=== PATIENT | female | born 1940 ===

== ENCOUNTER 2017-04-08 11:24 | Inpatient (IN) | payer MEDICARE, OTHER ==
[2017-04-08 11:24] VITALS: BMI 25.4
--- NOTE | 2017-04-08 11:58 | C.PDOC ---
History Of Present Illness 76-YEAR-OLD FEMALE, PRESENTS TO THE EMERGENCY DEPARTMENT WITH COMPLAINTS OF NEW ONSET GI BLEED X 3 DAYS. +BLOOD W BM EACH TIME, WORSENING INTENSITY. +LLQ PAIN. LOCALIZED. NO NV, FEVER. DENIES PRIOR HO SAME. NO RECTAL PAIN. EXAM MILD DIST NONTOXIC HEENT NO PALLOR ABD +LLQ TEND SOFT NO RG REMAINDER NEG Time Seen by Provider: 04/08/17 11:52 Chief Complaint (Nursing): GI Problem History Per: Patient History/Exam Limitations: no limitations Current Symptoms Are (Timing): Still Present Severity: Moderate Past Medical History Reviewed: Historical Data, Nursing Documentation, Vital Signs Vital Signs: Last Vital Signs Temp 98.4 F 04/08/17 11:29 Pulse 76 04/08/17 13:20 Resp 16 04/08/17 13:20 BP 153/79 H 04/08/17 13:20 Pulse Ox 96 04/08/17 14:01 - Medical History PMH: Back Problems (Herniated Discs), Colonic Polyps, HTN, Hypercholesterolemia , Osteoporosis, Peripheral Edema Denies: Chronic Kidney Disease - [facility] Procedures CLOSED ENDOSCOPIC BIOPSY OF LARGE INTESTINE (01/25/15) LOCAL EXCIS BREAST LES (05/03/01) Family History: States: No Known Family Hx - Social History Hx Tobacco Use: No Hx Alcohol Use: No Hx Substance Use: No - Immunization History Hx Tetanus Toxoid Vaccination: Yes Hx Influenza Vaccination: No Hx Pneumococcal Vaccination: No Review Of Systems Except As Marked, All Systems Reviewed And Found Negative. Constitutional: Negative for: Fever Cardiovascular: Negative for: Chest Pain Respiratory: Negative for: Shortness of Breath Gastrointestinal: Positive for: Abdominal Pain (LLQ), Hematochezia Genitourinary: Negative for: Vaginal Discharge, Vaginal Bleeding Musculoskeletal: Negative for: Back Pain Neurological: Negative for: Weakness, Numbness Physical Exam - Physical Exam Appears: Non-toxic, No Acute Distress Skin: Warm, Dry, No Rash Head: Atraumatic, Normacephalic Eye(s): bilateral: Normal Inspection, Other (no pallor) Nose: Normal Oral Mucosa: Moist Neck: Normal ROM Cardiovascular: Rhythm Regular, No Murmur Respiratory: Normal Breath Sounds, No Accessory Muscle Use Gastrointestinal/Abdominal: Soft, Tenderness (LLQ), No Guarding, No Rebound Extremity: Normal ROM Neurological/Psych: Oriented x3, Normal Speech ED Course And Treatment - Laboratory Results Result Diagrams: 04/08/17 12:18 04/08/17 12:18 ECG: Interpreted By Me ECG Rhythm: Sinus Rhythm ECG Interpretation: Normal Rate From EC O2 Sat by Pulse Oximetry: 96 Pulse Ox Interpretation: Normal Progress - Data Reviewed Data Reviewed: Lab, Diagnostic imaging, EKG, Old records ED OBSERVATION Date of observation admission: 04/08/17 Time of observation admission: 11:45 - Observation admission statement Patient is being placed in observation because:: GI BLEED, ABD PAIN - Goals of Observation Goals of observation are:: NO ACUTE ABD; NO SEVERE ANEMIA - Progress Note Progress Note: 04/08/17 13:57 NO RECUR RECTAL BLEED/BM SINCE PRIOR EVAL. TACHYCARDIA RESOLVED. 04/08/17 13:58 D/W DR HART C/F PMD WILL ADMIT Disposition Counseled Patient/Family Regarding: Studies Performed, Diagnosis - Disposition Disposition: HOSPITALIZED Disposition Time: 14:00 Condition: SERIOUS - POA Present On Arrival: None - Clinical Impression Clinical Impression: Gastrointestinal hemorrhage, Colitis, Abdominal pain - Scribe Statement The provider has reviewed the documentation as recorded by the Scribe (Tree Dillon) All medical record entries made by the Scribe were at my direction and personally dictated by me. I have reviewed the chart and agree that the record accurately reflects my personal performance of the history, physical exam, medical decision making, and the department course for this patient. I have also personally directed, reviewed, and agree with the discharge instructions and disposition. Decision To Admit - Pt Status Changed To: Hospital Disposition Of: Inpatient - Admit Certification Admit to Inpatient:: After my assessment, the patient will require hospitalization for at least two midnights. This is because of the severity of symptoms shown, intensity of services needed, and/or the medical risk in this patient being treated as an outpatient. - InPatient: Physician Admission Certification: I certify that this patient requires 2 or more midnights of care for the following reason:: SEE NOTE - . Bed Request Type: Telemetry Admitting Physician: Imelda Hart Patient Diagnosis: Gastrointestinal hemorrhage, Colitis, Abdominal pain
[2017-04-08] MEDS ORDERED: Sodium Chloride 0.9% 1,000 ML IV ONE (11:59)
[2017-04-08] MEDS ORDERED: Sodium Chloride 0.9% 500 ML IV ONE (11:59)
[2017-04-08] MEDS ORDERED: Iodixanol 320 MG/ML 100 ML BOTTLE IV ONE (12:13)
[2017-04-08 12:22] LABS: BASO % 0.2 % (0.0-2.0); HEMATOCRIT 47.1 % (34.0-47.0); LYMPH # 1.7 K/uL (1.0-4.3); LYMPH % 11.3 % (20.0-40.0); MEAN CORPUSCULAR HEMOGLOBIN 31.4 pg (27.0-31.0); MEAN CORPUSCULAR HGB CONC 34.1 g/dL (33.0-37.0); MONO # 0.8 K/uL (0.0-0.8); MONO % 5.1 % (0.0-10.0); RED CELL DISTRIBUTION WIDTH 13.1 % (11.5-14.5)
[2017-04-08 12:25] LABS: WHITE BLOOD COUNT 14.7 K/uL (4.8-10.8)
[2017-04-08 12:34] LABS: ALB/GLOB RATIO 1.1 (1.0-2.1); ALKALINE PHOSPHATASE 152 U/L (38-126); ALT/SGPT 33 U/L (9-52); AST/SGOT 31 U/L (14-36); BILIRUBIN,TOTAL 1.1 mg/dL (0.2-1.3); BLOOD UREA NITROGEN 12 mg/dL (7-17); CALCIUM 9.5 mg/dl (8.6-10.4); CARBON DIOXIDE 27 mmol/L (22-30); CHLORIDE 99 mmol/L (98-107); GFR AFRICAN-AMERICAN > 60; GLUCOSE,RANDOM 137 mg/dL (65-105); POTASSIUM 3.5 mmol/L (3.6-5.2); SODIUM 141 mmol/L (132-148); TOTAL PROTEIN 7.9 g/dL (6.3-8.3)
[2017-04-08 12:46] LABS: RBC URINE 8 /hpf (0-3); URINE BACTERIA RARE (<OCC); URINE BILIRUBIN NEGATIVE (NEGATIVE); URINE BLOOD 1+ (NEGATIVE); URINE COLOR Yellow (YELLOW); URINE GLUCOSE (UA) 1+ mg/dL (Normal); URINE KETONE NEGATIVE (NEGATIVE); URINE LEUKOCYTE ESTERASE NEG Leu/uL (Negative); URINE PROTEIN 2+ mg/dL (NEGATIVE); URINE UROBILINOGEN NORMAL mg/dL (0.2-1.0); WBC URINE 3 /hpf (0-5)
--- NOTE | 2017-04-08 13:51 | CT ---
PROCEDURE: CT Abdomen and Pelvis with contrast HISTORY: GI Bleeding LLQ PAIN COMPARISON: Abdomen and pelvis CT with contrast 04/26/2016. TECHNIQUE: Contrast dose: Visipaque 320, 100 cc. Radiation dose: Total exam DLP = 515 mGy-cm. This CT exam was performed using one or more of the following dose reduction techniques: Automated exposure control, adjustment of the mA and/or kV according to patient size, and/or use of iterative reconstruction technique. FINDINGS: LOWER THORAX: Small hiatal hernia is identified. No pleural or pericardial effusion. LIVER: Unremarkable. No gross lesion or ductal dilatation. GALLBLADDER AND BILE DUCTS: Unremarkable. PANCREAS: Unremarkable. No gross lesion or ductal dilatation. SPLEEN: Unremarkable. ADRENALS: Unremarkable. No mass. KIDNEYS AND URETERS: Unremarkable. No hydronephrosis. No solid mass. VASCULATURE: And ectatic non aneurysmal aorta is identified patent. BOWEL: There is marked thickening of the descending colon including the mid to distal splenic flexure including local pericolic reaction. Infrequent diverticular seen along this length of colon and while diverticulitis is a possibility, other infectious or inflammatory causes are not excluded. Not favor ischemia and neoplasm however follow-up lower endoscopy is advised for the latter nevertheless following current pending therapy no bowel obstruction is appreciated there is no abscess related to the aforementioned reactive bowel changes. Opacified small bowel loops appear unremarkable. APPENDIX: Small hiatal hernia identified. Normal appendix. PERITONEUM: Unremarkable. No free fluid. No free air. LYMPH NODES: Unremarkable. No enlarged lymph nodes. BLADDER: Urinary bladder appears decompressed with somewhat thickened wall which is poorly evaluated. Further clinical correlation is advised. REPRODUCTIVE: Unremarkable. BONES: No acute fracture. OTHER FINDINGS: None. IMPRESSION: 1. Findings suggestive of segmental colitis affecting the descending colon and mid to distal splenic flexure. Diverticulitis is a limited possibility with the other infectious or inflammatory causes possible. No abscess or free air. Trace fluid is seen the pelvis. Including the diverted diagnosis but not favored are ischemia and neoplasm. Please see discussion above. 2. Urinary bladder is not adequately distended with mural thickening not excluded. Clinically correlate.
--- NOTE | 2017-04-08 15:11 | CP.PCM.HP ---
Addendum entered and electronically signed by Roopa James 04/08/17 17:46 : Discussed with patient in case of an emergency and we need to contact someone to make medical decisions if she cannot. The patient stated if in an emergency she cannot make decisions we can contact her son Tommie Baca and he can make the decisions in her place. Original Note: <Roopa James. - Last Filed: 04/08/17 17:31> History of Present Illness - History of Present Illness History of Present Illness: CC: "Pain" HPI: 76 year old female with past medical history of hypertension, hyperlipidemia, and arthritis who presents to the emergency room for abdominal pain. Patient states on Sunday she had some constipation that led her to the bathroom where she saw blood in the toilet. Per patient yesterday she had two bowel movements that were also with blood but the bowel movement were normal in shape and she denied constipation. Patient states today when she had a bowel movement she had a severe abdominal pain and the toilet was covered in blood and that's when she decided to come to the emergency department. Patient states her pain is currently a 6/10. Patient stated she had chills overnight and she vomited once yesterday after eating a piece of bread. Patient states she has not had much of an appetite recently and she has lost 20lbs in the past month or so. Patient states blood in her stool has never happened before. Patient states she did get her colonoscopy about 2 years ago and it was normal but she believes she may need another this year. Patient denies fever, chest pain, shortness of breath, palpitations, trauma, or recent travel. PMD: Dr. Choe GI: Dr. Hdez Past Medical History: Hypertension, hyperlipidemia, arthritis Past Surgical History: Colonoscopy, , shoulder surgery, herniated disk surgery Family History: Mom from lung cancer at the age of 75 Medications: patient does not recall- follow up with [facility] in [place] Allergies: Denies Social History: Denies smoking, alcohol, or illicit drug use. Patient lives in apartment alone with her cat. Patient has a son near by - Tommie Baca . Present on Admission - Present on Admission Any Indicators Present on Admission: No Review of Systems - Constitutional Constitutional: Chills, Weight Loss (20lb weight loss in the past 2 months). absent: Fever, Headache, Increased Appetite (decreased appetite ) - EENT Eyes: absent: Blurred Vision, Change in Vision Nose/Mouth/Throat: absent: Nasal Congestion, Sore Throat - Cardiovascular Cardiovascular: absent: Chest Pain, Dyspnea, Palpitations - Respiratory Respiratory: absent: Cough, Dyspnea, Hemoptysis - Gastrointestinal Gastrointestinal: Abdominal Pain, Constipation, Hematochezia, Vomiting (vomited once yesterday). absent: Diarrhea, Nausea - Genitourinary Genitourinary: absent: Dysuria, Hematuria - Musculoskeletal Musculoskeletal: absent: Muscle Weakness - Neurological Neurological: absent: Dizziness, Headaches - Psychiatric Psychiatric: Change in Appetite - Endocrine Endocrine: absent: Palpitations Past Patient History - Past Medical History & Family History Past Medical History?: Yes - Past Social History Smoking Status: Never Smoked - CARDIAC Hx Hypercholesterolemia: Yes Hx Hypertension: Yes Hx Peripheral Edema: Yes - PULMONARY Hx Respiratory Disorders: No - NEUROLOGICAL Hx Neurological Disorder: Yes Hx Dizziness: Yes - HEENT Hx HEENT Problems: Yes (WAX BUILD UP RIGHT EAR) - RENAL Hx Chronic Kidney Disease: No - ENDOCRINE/METABOLIC Hx Endocrine Disorders: No - HEMATOLOGICAL/ONCOLOGICAL Hx Blood Disorders: No - INTEGUMENTARY Hx Dermatological Problems: No - MUSCULOSKELETAL/RHEUMATOLOGICAL Hx Osteoporosis: Yes - GASTROINTESTINAL Hx Gastrointestinal Disorders: Yes - GENITOURINARY/GYNECOLOGICAL Hx Genitourinary Disorders: No - PSYCHIATRIC Hx Substance Use: No - SURGICAL HISTORY Hx Surgeries: Yes Hx Breast Biopsy: Yes (RIGHT) Hx Section: Yes (X2) Hx Orthopedic Surgery: Yes (LEFT CARPAL) Hx Tubal Ligation: Yes - ANESTHESIA Hx Anesthesia: Yes Hx Anesthesia Reactions: No Hx Malignant Hyperthermia: No Meds Allergies/Adverse Reactions: Allergies Allergy/AdvReac Type Severity Reaction Status Date / Time No Known Allergies Allergy Verified 04/08/17 11:31 Physical Exam - Constitutional Appears: No Acute Distress - Head Exam Head Exam: ATRAUMATIC, NORMAL INSPECTION, NORMOCEPHALIC - Eye Exam Eye Exam: EOMI, Normal appearance, PERRL. absent: Conjunctival injection, Nystagmus, Periorbital swelling, Scleral icterus Pupil Exam: NORMAL ACCOMODATION, PERRL - ENT Exam ENT Exam: Mucous Membranes Dry. absent: Normal Oropharynx (tongue looked slightly light black tinged ) - Respiratory Exam Respiratory Exam: Clear to Auscultation Bilateral, NORMAL BREATHING PATTERN. absent: Rales, Rhonchi, Wheezes, Stridor - Cardiovascular Exam Cardiovascular Exam: Tachycardia, REGULAR RHYTHM, +S1, +S2 - GI/Abdominal Exam GI & Abdominal Exam: Normal Bowel Sounds, Soft, Tenderness (left upper quadrant pain) - Rectal Exam Rectal Exam: Bloody Stool. absent: Hemorrhoids Additional comments: No masses felt, no tenderness to exam - Extremities Exam Extremities exam: Positive for: normal inspection. Negative for: calf tenderness, pedal edema, tenderness - Neurological Exam Neurological exam: Alert, CN II-XII Intact, Oriented x3 - Psychiatric Exam Psychiatric exam: Normal Affect - Skin Skin Exam: Normal Color, Warm Results - Vital Signs Recent Vital Signs: Last Vital Signs Temp 98.2 F 04/08/17 15:01 Pulse 92 H 04/08/17 15:01 Resp 16 04/08/17 15:01 BP 138/80 04/08/17 15:01 Pulse Ox 100 04/08/17 15:01 - Labs Result Diagrams: 04/08/17 12:18 04/08/17 12:18 Assessment & Plan - Assessment and Plan (Free Text) Plan: 1.) Lower GI Bleed - Admitted to telemetry floor - NPO changed to Clear Liquid Diet (okay to start per surgery and GI) - IV fluis NS @100cc/hr - GI Consult: Dr. Hdez --> help appreciated - f/u CBC with diff - Monitor H/H - Ordered Type/Cross 1 unit - PRN blood transfusion - Blood transfusion consent placed in chart - Protonix 40mg IV Q12h - Refrain from: NSAIDs, anticoagulation 2.) Abdominal Pain - f/u lipase, amylase - NPO changed to Clear Liquid Diet (okay to start per surgery and GI) - CT scan of Abdomen (IV contrast): Findings suggestive of segmental colitis affecting the descending colon and mid to distal splenic flexure. Diverticulitis is limited possibility with the other infectious or inflammatory causes possible. No abscess or free air. Trace fluid is seen the pelvis. Including the diverted diagnosis but not favored are ischemia and neoplasm. - IV fluids NS @100 cc/hr - Surgery Consult: Dr. Marion --> help appreciated - f/u occult blood, stool ova/parasite, stool leukocytes, stool culture, C. Diff toxin - Ciprofloxacin 400mg IV Q12H started 04/08/17 - Flagyl 500mg IV Q8H started 04/08/17 3.) Hypokalemia - Replete - f/u BMP and Mg - monitor to replete 4.) History of Hypertension - hold antihypertensives - monitor vital signs 5.) History of Hyperlipidemia - Hold statin - f/u Lipid panel 6.) History of Internal Hemorrhoids - Endoscopy Report 01/25/15: Nonspecific colitis involving the ascending colon; Internal hemorrhoids 7.) Tachycardia - f/u repeat EKG 04/09/2017 - f/u ROMIx3 8.) Leukocytosis - f/u blood cultures x2 - f/u UA, Urine Culture (prior to starting antibiotics) 9.) Prophylaxis - Contraindication for VTE - due to lower GI bleed - SCDs <Imelda Kearney V - Last Filed: 04/08/17 18:04> Results - Vital Signs Recent Vital Signs: Last Vital Signs Temp 98.8 F 04/08/17 15:16 Pulse 68 04/08/17 15:16 Resp 20 04/08/17 15:16 BP 150/78 04/08/17 15:16 Pulse Ox 99 04/08/17 15:16 - Labs Result Diagrams: 04/08/17 12:18 04/08/17 12:18 Labs: Laboratory Results - last 24 hr 04/08/17 04/08/17 04/08/17 14:59 16:12 16:13 POC Glucose (mg/dL) 95 Total Creatine Kinase 42 CK-MB (Mass) 1.57 Troponin I, Quant < 0.0120 Amylase 80 Lipase 51 Stool Occult Blood 04/08/17 17:24 POC Glucose (mg/dL) Total Creatine Kinase CK-MB (Mass) Troponin I, Quant Amylase Lipase Stool Occult Blood Positive H Attending/Attestation - Attestation I have personally seen and examined this patient.: Yes I have fully participated in the care of the patient.: Yes I have reviewed all pertinent clinical information: Yes Notes (Text): Patient seen, examined and case discussed with day-time resident. Patient seen in Bed [facility] Room on 04/08/17 at approximately at 3PM. No family present. Agree with history and physical obtained by resident. Resident perform rectal exam when she was transferred to the floor and visualized bowel movement. Patient's BM is loose and covered in blood, does not appear black. Patient has been off NSAID for one month (used to take Naproxen). Came in after three hx of rectal bleeding with stool, and day of admission having abdominal pain. Patient refused Morphine in the ED. Will replete electrolytes, IV fluids, type and cross 1 unit PRBC blood transfusion prn, consult patient's GI and general surgery. Repeat blood work in the evening and replete electrolytes if needed. Discussed admitting orders with day time resident. Assessment/Plan 1.) Lower GI Bleed - Admitted to telemetry floor - NPO changed to Clear Liquid Diet (Per surgery and GI, allowed to) - IV fluis NS @100cc/hr - GI Consult: Dr. Hdez --> help appreciated - f/u CBC with diff 6PM - Monitor H/H - Ordered Type/Cross 1 unit - PRN blood transfusion if needed - Blood transfusion consent placed in chart - Protonix 40mg IV Q12h - Refrain from: NSAIDs, chemical anticoagulation 2.) Abdominal Pain - Surgery Consult: Dr. Marion --> help appreciated - GI consult: Dr. Hdez-->help appreciated - f/u lipase, amylase - NPO changed to Clear Liquid Diet (okay to start per surgery and GI) - CT scan of Abdomen (IV contrast): Findings suggestive of segmental colitis affecting the descending colon and mid to distal splenic flexure. Diverticulitis is limited possibility with the other infectious or inflammatory causes possible. No abscess or free air. Trace fluid is seen the pelvis. Including the diverted diagnosis but not favored are ischemia and neoplasm. - IV fluids NS @100 cc/hr - f/u occult blood, stool ova/parasite, stool leukocytes, stool culture, C. Diff toxin - IV Abx: Ciprofloxacin 400mg IV Q12H started 04/08/17 and Flagyl 500mg IV Q8H started 04/08/17 3.) Hypokalemia - Replete - f/u BMP and Mg in evening; discussed with nurse, Lex terry collected after initial K rider is finished infusing - monitor to replete 4.) History of Hypertension - hold antihypertensives given GI bleed - NS 100cc/hr - monitor vital signs 5.) History of Hyperlipidemia - Hold statin - f/u Lipid panel in AM 6.) History of Internal Hemorrhoids - Endoscopy Report 01/25/15: Nonspecific colitis involving the ascending colon; Internal hemorrhoids (available in the EMR; pathology available in EMR) - Per patient, she was due for colonoscopy with her GI around about this time 7.) Tachycardia - f/u repeat EKG 04/09/2017 - f/u ROMIx3, Q6 hours 8.) Leukocytosis - f/u blood cultures x2 - f/u UA, Urine Culture (prior to starting antibiotics) 9.) Prophylaxis - Contraindication for VTE - due to lower GI bleed - SCDs - Protonix 40mg IV [id number] Will endorse day-time team to follow-up with patient's pharmacy to get patient' s home medication list.
[2017-04-08 15:15] LABS: AMYLASE 80 U/L (30-110)
[2017-04-08 16:03] VITALS: RESP 20
[2017-04-08] MEDS: metroNIDAZOLE IV 500 mg/100 ml 500 MG/100 ML BAG IVPB SCH ×2 (16:06→22:02)
--- NOTE | 2017-04-08 16:07 | CP.PCM.CON ---
History of Present Illness - History of Present Illness History of Present Illness: Gen Sx: Dr Marion Pt is a 76F with PMH of HTN, HLD, and arthritis who presented for new onset lower GI bleeding. Pt reports on sunday she had a small amount of blood on tissue after wiping. Following that on sunday she had two bowel movements which were normal in shape but with bright red blood in the bowel so she presented to ED. Pt expresses her BM was accompanied by intense left sided abdominal pain 6/10. Pt also reports a decrease in appetite and 20 lb weight loss over the past 2 months. Pt routinely sees Dr Hdez w/ last colonoscopy 2 years ago which showed internal hemorrhoids CT concerning for segmental colitis, infectious vs ischemic PMH: as above PSH: , shoulder, spine NKDA Review of Systems - Review of Systems All systems: reviewed and no additional remarkable complaints except (as per hpi ) Past Patient History - Past Medical History & Family History Past Medical History?: Yes - Past Social History Smoking Status: Never Smoked - CARDIAC Hx Hypercholesterolemia: Yes Hx Hypertension: Yes Hx Peripheral Edema: Yes - PULMONARY Hx Respiratory Disorders: No - NEUROLOGICAL Hx Neurological Disorder: Yes Hx Dizziness: Yes - HEENT Hx HEENT Problems: Yes (WAX BUILD UP RIGHT EAR) - RENAL Hx Chronic Kidney Disease: No - ENDOCRINE/METABOLIC Hx Endocrine Disorders: No - HEMATOLOGICAL/ONCOLOGICAL Hx Blood Disorders: No - INTEGUMENTARY Hx Dermatological Problems: No - MUSCULOSKELETAL/RHEUMATOLOGICAL Hx Osteoporosis: Yes - GASTROINTESTINAL Hx Gastrointestinal Disorders: Yes - GENITOURINARY/GYNECOLOGICAL Hx Genitourinary Disorders: No - PSYCHIATRIC Hx Substance Use: No - SURGICAL HISTORY Hx Surgeries: Yes Hx Breast Biopsy: Yes (RIGHT) Hx Section: Yes (X2) Hx Orthopedic Surgery: Yes (LEFT CARPAL) Hx Tubal Ligation: Yes - ANESTHESIA Hx Anesthesia: Yes Hx Anesthesia Reactions: No Hx Malignant Hyperthermia: No Meds Allergies/Adverse Reactions: Allergies Allergy/AdvReac Type Severity Reaction Status Date / Time No Known Allergies Allergy Verified 04/08/17 11:31 - Medications Medications: Current Medications Sodium Chloride (Sodium Chloride 0.9%) 1,000 mls @ 100 mls/hr IV .Q10H ONE Stop: 04/08/17 21:58 Last Admin: 04/08/17 12:55 Dose: 100 mls/hr Potassium Chloride (Potassium Chloride 20 Meq/100 Ml) 20 meq in 100 mls @ 50 mls/hr IVPB ONCE ONE Stop: 04/08/17 16:59 Last Admin: 04/08/17 14:59 Dose: 50 mls/hr Ciprofloxacin (Cipro 400mg/200ml Dsw) 400 mg in 200 mls @ 133 mls/hr IVPB Q12H NAIL Metronidazole (Flagyl) 500 mg in 100 mls @ 100 mls/hr IVPB Q8H ANIL Last Admin: 04/08/17 16:06 Dose: Not Given Pantoprazole Sodium (Protonix Inj) 40 mg IVP Q12H ANIL Physical Exam - Constitutional Appears: Non-toxic, No Acute Distress - Head Exam Head Exam: NORMOCEPHALIC - ENT Exam ENT Exam: Mucous Membranes Moist - Respiratory Exam Respiratory Exam: absent: Accessory Muscle Use, Respiratory Distress - Cardiovascular Exam Cardiovascular Exam: REGULAR RHYTHM - GI/Abdominal Exam GI & Abdominal Exam: Soft, Tenderness (LLQ and LUQ). absent: Distended, Firm, Guarding, Rigid - Rectal Exam Rectal Exam: Bloody Stool - Extremities Exam Extremities exam: Negative for: calf tenderness, pedal edema - Neurological Exam Neurological exam: Alert, Oriented x3 - Psychiatric Exam Psychiatric exam: Normal Affect, Normal Mood - Skin Skin Exam: Normal Color, Warm Results - Vital Signs Recent Vital Signs: Last Vital Signs Temp 98.8 F 04/08/17 15:16 Pulse 68 04/08/17 15:16 Resp 20 04/08/17 15:16 BP 150/78 04/08/17 15:16 Pulse Ox 99 04/08/17 15:16 - Labs Result Diagrams: 04/08/17 19:38 04/08/17 12:18 Labs: Laboratory Results - last 24 hr 04/08/17 14:59 Amylase 80 Lipase 51 Assessment & Plan - Assessment and Plan (Free Text) Assessment: 76F with bright red blood per rectum; hemorrhoids vs colitis Plan: IV fluids Ok to feed CLD but will defer decision to GI time pt may need repeat colonoscopy IV abx no immediate surgical intent but will continue to follow trend H/H d/w Dr Doni Bailey, PGY3
[2017-04-08] MEDS ORDERED: DiphenhydrAMINE 50 mg/ml Inj IVP ONE (17:15)
[2017-04-08] MEDS: Ciprofloxacin 400mg/200ml D5W 400 MG/200 ML BAG IVPB SCH (18:26)
[2017-04-08] MEDS: Sodium Chloride 0.9% 1,000 ML IV SCH (18:54)
[2017-04-08 19:43] LABS: BASO % 0.3 % (0.0-2.0); EOS % 0.2 % (0.0-4.0); HEMATOCRIT 40.7 % (34.0-47.0); LYMPH # 2.7 K/uL (1.0-4.3); LYMPH % 18.6 % (20.0-40.0); MEAN CELL VOLUME 92.4 fL (81.0-99.0); MEAN CORPUSCULAR HEMOGLOBIN 31.4 pg (27.0-31.0); MEAN PLATELET VOLUME 7.2 fL (7.2-11.7); MONO # 0.8 K/uL (0.0-0.8); MONO % 5.8 % (0.0-10.0); RED CELL DISTRIBUTION WIDTH 13.4 % (11.5-14.5); WHITE BLOOD COUNT 14.6 K/uL (4.8-10.8)
[2017-04-08 22:49] LABS: CHLORIDE 106 mmol/L (98-107); POTASSIUM 3.3 mmol/L (3.6-5.2); SODIUM 140 mmol/L (132-148)
[2017-04-08 22:52] LABS: AMYLASE 82 U/L (30-110); BLOOD UREA NITROGEN 7 mg/dL (7-17); CARBON DIOXIDE 24 mmol/L (22-30); GFR AFRICAN-AMERICAN > 60
[2017-04-08 22:53] LABS: CALCIUM 8.2 mg/dl (8.6-10.4); GLUCOSE,RANDOM 135 mg/dL (65-105); MAGNESIUM 1.6 mg/dL (1.6-2.3)
[2017-04-08] MEDS ORDERED: Magnesium Sulfate 1 gm in D5W 1 GM/100 ML BAG IVPB ONE (23:09)
[2017-04-08] MEDS: Potassium Chloride 20 mEq ER Tab PO SCH (23:42)
[2017-04-09] MEDS: Sodium Chloride 0.9% 1,000 ML IV SCH ×3 (05:00→16:30)
[2017-04-09] MEDS: metroNIDAZOLE IV 500 mg/100 ml 500 MG/100 ML BAG IVPB SCH ×3 (05:10→21:06)
[2017-04-09] MEDS: Ciprofloxacin 400mg/200ml D5W 400 MG/200 ML BAG IVPB SCH ×2 (06:18→17:16)
--- NOTE | 2017-04-09 06:45 | CP.PCM.PN ---
Subjective - Date & Time of Evaluation Date of Evaluation: 04/09/17 Time of Evaluation: 06:43 - Subjective Subjective: Gen Sx: Dr Marion Pt S&E. Reports another bloody BM overnight. Still with pain to left side. Tolerating CLD. Denies n/v, f/c. Awaiting GI evaluation Objective - Vital Signs/Intake and Output Vital Signs (last 24 hours): Temp Pulse Resp BP Pulse Ox 98.5 F 65 20 132/71 97 04/08/17 23:30 04/09/17 00:16 04/08/17 23:30 04/08/17 23:30 04/08/17 23:30 Intake and Output: 04/08/17 04/09/17 18:59 06:59 Intake Total 1300 Balance 1300 - Medications Medications: Current Medications Ciprofloxacin (Cipro 400mg/200ml Dsw) 400 mg in 200 mls @ 133 mls/hr IVPB Q12H [facility] Last Admin: 04/09/17 06:18 Dose: 133 mls/hr Metronidazole (Flagyl) 500 mg in 100 mls @ 100 mls/hr IVPB Q8H [facility] Last Admin: 04/09/17 05:10 Dose: 100 mls/hr Sodium Chloride (Sodium Chloride 0.9%) 1,000 mls @ 100 mls/hr IV .Q10H [facility] Last Admin: 04/09/17 05:00 Dose: Not Given Pantoprazole Sodium (Protonix Inj) 40 mg IVP Q12H [facility] Last Admin: 04/09/17 05:10 Dose: 40 mg Potassium Chloride (K-Dur 20 Meq Er Tab) 40 meq PO DAILY [facility] Last Admin: 04/08/17 23:42 Dose: 40 meq Rosuvastatin Calcium (Crestor) 5 mg PO HS [facility] Last Admin: 04/08/17 22:02 Dose: 5 mg - Labs Labs: 04/08/17 19:38 04/08/17 22:38 PT 11.5 SECONDS (9.7-12.2) 04/08/17 12:18 INR 1.0 04/08/17 12:18 APTT 31 SECONDS (21-34) 04/08/17 12:18 - Constitutional Appears: Non-toxic, No Acute Distress - ENT Exam ENT Exam: Mucous Membranes Moist - Respiratory Exam Respiratory Exam: absent: Accessory Muscle Use, Respiratory Distress - GI/Abdominal Exam GI & Abdominal Exam: Soft, Tenderness (LUQ + LLQ). absent: Distended, Hernia, Mass - Neurological Exam Neurological Exam: Alert, Awake, Oriented x3 - Psychiatric Exam Psychiatric exam: Normal Affect - Skin Skin Exam: Normal Color, Warm Assessment and Plan - Assessment and Plan (Free Text) Assessment: 76F with brbpr Plan: awaiting GI eval - Dr Hdez pt will likely need colonoscopy cont CLD, IV abx monitor H/H closely will cont to follow d/w Dr Doni Bailey, PGY3
[2017-04-09 07:28] LABS: BASO % 0.2 % (0.0-2.0); EOS % 0.2 % (0.0-4.0); HEMATOCRIT 41.4 % (34.0-47.0); LYMPH # 2.5 K/uL (1.0-4.3); LYMPH % 17.6 % (20.0-40.0); MEAN CELL VOLUME 92.4 fL (81.0-99.0); MEAN CORPUSCULAR HEMOGLOBIN 30.8 pg (27.0-31.0); MEAN CORPUSCULAR HGB CONC 33.4 g/dL (33.0-37.0); MEAN PLATELET VOLUME 7.2 fL (7.2-11.7); RED CELL DISTRIBUTION WIDTH 13.4 % (11.5-14.5); WHITE BLOOD COUNT 13.9 K/uL (4.8-10.8)
[2017-04-09 07:50] LABS: ALKALINE PHOSPHATASE 110 U/L (38-126); ALT/SGPT 33 U/L (9-52); AST/SGOT 22 U/L (14-36); BILIRUBIN,TOTAL 1.2 mg/dL (0.2-1.3); BLOOD UREA NITROGEN 6 mg/dL (7-17); CALCIUM 8.5 mg/dl (8.6-10.4); CARBON DIOXIDE 27 mmol/L (22-30); CHLORIDE 104 mmol/L (98-107); CHOLESTEROL 191 mg/dL (0-199); GFR AFRICAN-AMERICAN > 60; GLUCOSE,RANDOM 118 mg/dL (65-105); SODIUM 139 mmol/L (132-148); TOTAL PROTEIN 6.4 g/dL (6.3-8.3)
--- NOTE | 2017-04-09 08:36 | CP.PCM.CON ---
History of Present Illness - History of Present Illness History of Present Illness: Covering Dr Hdez CC: lower GI Bleed HPI: GI consult requested for 76 year old woman admitted with sveral episodes of BRBPR mixed wit soft stools, associated with cramping LLQ pain. Hgb stable. Denies fevers but chills present. Patient denies recent travel or antibiotics. She has no prior history of GI bleeding. She takes numerous anelgesics for arthritis, but denies anticoagulant use. Last colonoscopy was in 2014, and showed nonspecific colitis in ascending colon. Current DT scan shwos colitis changes present in descending colon. Review of Systems - Constitutional Constitutional: Chills. absent: Fever, Weakness - EENT Eyes: absent: Change in Vision Nose/Mouth/Throat: absent: Epistaxis, Dysphagia - Cardiovascular Cardiovascular: absent: Chest Pain - Respiratory Respiratory: absent: Cough - Gastrointestinal Gastrointestinal: Cramping, Diarrhea, Hematochezia, Loose Stools. absent: Abdominal Pain, Hematemesis, Melena - Genitourinary Genitourinary: absent: Difficulty Urinating - Musculoskeletal Musculoskeletal: Arthralgias - Integumentary Integumentary: absent: Bleeding Lesions - Neurological Neurological: absent: Abnormal Gait, Abnormal Hearing - Psychiatric Psychiatric: absent: Behavioral Changes, Depression - Endocrine Endocrine: absent: Flushing - Hematologic/Lymphatic Hematologic: absent: Easy Bruising Past Patient History - Past Medical History & Family History Past Medical History?: Yes - Past Social History Smoking Status: Never Smoked Alcohol: None - CARDIAC Hx Hypercholesterolemia: Yes Hx Hypertension: Yes Hx Peripheral Edema: Yes - PULMONARY Hx Respiratory Disorders: No - NEUROLOGICAL Hx Neurological Disorder: Yes Hx Dizziness: Yes - HEENT Hx HEENT Problems: Yes (WAX BUILD UP RIGHT EAR) - RENAL Hx Chronic Kidney Disease: No - ENDOCRINE/METABOLIC Hx Endocrine Disorders: No - HEMATOLOGICAL/ONCOLOGICAL Hx Blood Disorders: No - INTEGUMENTARY Hx Dermatological Problems: No - MUSCULOSKELETAL/RHEUMATOLOGICAL Hx Osteoporosis: Yes - GASTROINTESTINAL Hx Gastrointestinal Disorders: Yes - GENITOURINARY/GYNECOLOGICAL Hx Genitourinary Disorders: No - PSYCHIATRIC Hx Substance Use: No - SURGICAL HISTORY Hx Surgeries: Yes Hx Breast Biopsy: Yes (RIGHT) Hx Section: Yes (X2) Hx Orthopedic Surgery: Yes (LEFT CARPAL) Hx Tubal Ligation: Yes - ANESTHESIA Hx Anesthesia: Yes Hx Anesthesia Reactions: No Hx Malignant Hyperthermia: No Meds Allergies/Adverse Reactions: Allergies Allergy/AdvReac Type Severity Reaction Status Date / Time No Known Allergies Allergy Verified 04/08/17 11:31 - Medications Medications: Current Medications Ciprofloxacin (Cipro 400mg/200ml Dsw) 400 mg in 200 mls @ 133 mls/hr IVPB Q12H [facility] Last Admin: 04/09/17 06:18 Dose: 133 mls/hr Metronidazole (Flagyl) 500 mg in 100 mls @ 100 mls/hr IVPB Q8H [facility] Last Admin: 04/09/17 05:10 Dose: 100 mls/hr Sodium Chloride (Sodium Chloride 0.9%) 1,000 mls @ 100 mls/hr IV .Q10H [facility] Last Admin: 04/09/17 05:00 Dose: Not Given Pantoprazole Sodium (Protonix Inj) 40 mg IVP Q12H [facility] Last Admin: 04/09/17 05:10 Dose: 40 mg Potassium Chloride (K-Dur 20 Meq Er Tab) 40 meq PO DAILY [facility] Last Admin: 04/08/17 23:42 Dose: 40 meq Rosuvastatin Calcium (Crestor) 5 mg PO HS [facility] Last Admin: 04/08/17 22:02 Dose: 5 mg Physical Exam - Constitutional Appears: Well, No Acute Distress - Head Exam Head Exam: ATRAUMATIC, NORMOCEPHALIC - Eye Exam Eye Exam: Normal appearance. absent: Scleral icterus - ENT Exam ENT Exam: Normal Exam - Neck Exam Neck exam: Positive for: Normal Inspection. Negative for: Thyromegaly - Respiratory Exam Respiratory Exam: Clear to Auscultation Bilateral. absent: Rales, Wheezes - Cardiovascular Exam Cardiovascular Exam: REGULAR RHYTHM - GI/Abdominal Exam GI & Abdominal Exam: Soft. absent: Distended, Guarding, Mass, Rebound, Tenderness - Rectal Exam Rectal Exam: Deferred - Extremities Exam Extremities exam: Positive for: normal inspection - Back Exam Back exam: NORMAL INSPECTION - Neurological Exam Neurological exam: Alert, Oriented x3 - Psychiatric Exam Psychiatric exam: Normal Affect, Normal Mood - Skin Skin Exam: Normal Color Results - Vital Signs Recent Vital Signs: Last Vital Signs Temp 98.5 F 04/08/17 23:30 Pulse 65 04/09/17 00:16 Resp 20 04/08/17 23:30 BP 132/71 04/08/17 23:30 Pulse Ox 97 04/08/17 23:30 - Labs Result Diagrams: 04/09/17 07:17 04/09/17 07:17 Labs: Laboratory Results - last 24 hr 04/08/17 04/08/17 04/08/17 14:59 16:12 16:13 WBC RBC Hgb Hct MCV MCH MCHC RDW Plt Count MPV Neut % (Auto) Lymph % (Auto) [place] % (Auto) Eos % (Auto) Baso % (Auto) Neut # Lymph # [place] # Eos # Baso # Sodium Potassium Chloride Carbon Dioxide Anion Gap BUN Creatinine Est GFR ( Amer) Est GFR (Non-Af Amer) POC Glucose (mg/dL) 95 Random Glucose Calcium Phosphorus Magnesium Total Bilirubin AST ALT Alkaline Phosphatase Total Creatine Kinase 42 CK-MB (Mass) 1.57 Troponin I, Quant < 0.0120 Total Protein Albumin Globulin Albumin/Globulin Ratio Triglycerides Cholesterol LDL Cholesterol Direct HDL Cholesterol Amylase 80 Lipase 51 Stool Occult Blood 04/08/17 04/08/17 04/08/17 17:24 19:38 21:42 WBC 14.6 H RBC 4.41 Hgb 13.9 D Hct 40.7 MCV 92.4 MCH 31.4 H MCHC 34.0 RDW 13.4 Plt Count 320 MPV 7.2 Neut % (Auto) 75.1 H Lymph % (Auto) 18.6 L [place] % (Auto) 5.8 Eos % (Auto) 0.2 Baso % (Auto) 0.3 Neut # 11.0 H Lymph # 2.7 [place] # 0.8 Eos # 0.0 Baso # 0.0 Sodium Potassium Chloride Carbon Dioxide Anion Gap BUN Creatinine Est GFR ( Amer) Est GFR (Non-Af Amer) POC Glucose (mg/dL) 70 Random Glucose Calcium Phosphorus Magnesium Total Bilirubin AST ALT Alkaline Phosphatase Total Creatine Kinase CK-MB (Mass) Troponin I, Quant Total Protein Albumin Globulin Albumin/Globulin Ratio Triglycerides Cholesterol LDL Cholesterol Direct HDL Cholesterol Amylase Lipase Stool Occult Blood Positive H 04/08/17 04/09/17 04/09/17 22:38 06:15 07:17 WBC RBC Hgb Hct MCV MCH MCHC RDW Plt Count MPV Neut % (Auto) Lymph % (Auto) [place] % (Auto) Eos % (Auto) Baso % (Auto) Neut # Lymph # [place] # Eos # Baso # Sodium 140 139 Potassium 3.3 L 4.0 Chloride 106 104 Carbon Dioxide 24 27 Anion Gap 13 12 BUN 7 6 L Creatinine 0.6 L 0.6 L Est GFR ( Amer) > 60 > 60 Est GFR (Non-Af Amer) > 60 > 60 POC Glucose (mg/dL) 107 Random Glucose 135 H 118 H Calcium 8.2 L 8.5 L Phosphorus 3.0 Magnesium 1.6 2.0 Total Bilirubin 1.2 AST 22 ALT 33 Alkaline Phosphatase 110 Total Creatine Kinase 41 CK-MB (Mass) 1.66 Troponin I, Quant < 0.0120 Total Protein 6.4 Albumin 3.1 L D Globulin 3.2 Albumin/Globulin Ratio 1.0 Triglycerides 69 D Cholesterol 191 LDL Cholesterol Direct 134 H HDL Cholesterol 55 Amylase 82 Lipase Stool Occult Blood 04/09/17 04/09/17 07:17 07:17 WBC 13.9 H RBC 4.48 Hgb 13.8 Hct 41.4 MCV 92.4 MCH 30.8 MCHC 33.4 RDW 13.4 Plt Count 322 MPV 7.2 Neut % (Auto) 75.0 Lymph % (Auto) 17.6 L [place] % (Auto) 7.0 Eos % (Auto) 0.2 Baso % (Auto) 0.2 Neut # 10.4 H Lymph # 2.5 [place] # 1.0 H Eos # 0.0 Baso # 0.0 Sodium Potassium Chloride Carbon Dioxide Anion Gap BUN Creatinine Est GFR ( Amer) Est GFR (Non-Af Amer) POC Glucose (mg/dL) Random Glucose Calcium Phosphorus Magnesium Total Bilirubin AST ALT Alkaline Phosphatase Total Creatine Kinase 29 L CK-MB (Mass) 1.07 Troponin I, Quant < 0.0120 Total Protein Albumin Globulin Albumin/Globulin Ratio Triglycerides Cholesterol LDL Cholesterol Direct HDL Cholesterol Amylase Lipase Stool Occult Blood Assessment & Plan (1) Colitis Assessment and Plan: Clinical picture most consistent with ischemic colitis. R/O infectious colitis. Hemodynamically stable and stable Hgb levels. Rec: Check stools for pathogens. Antibiotics probably not necessary but since they were already started I will not stop at this point. Diet may be advanced. Consider elective colonoscopy (last performed 2 years ago). Status: Acute
[2017-04-09] MEDS: Potassium Chloride 20 mEq ER Tab PO SCH (09:25)
--- NOTE | 2017-04-09 09:48 | CP.PCM.PN ---
<Flor Pettit - Last Filed: 04/09/17 14:40> Subjective - Date & Time of Evaluation Date of Evaluation: 04/09/17 Time of Evaluation: 07:00 - Subjective Subjective: PGY1- Medicine Note- Dr. Heller's Service Patient seen and examined at bedside and in no acute distress. Patient says she is feeling okay today with some epigastric and RUQ abdominal pain that she rates a 4/10 and says it bothers her most with certain positions. Patient had 2x bowel movements containing soft stool with bright red blood. Patient said she had about 3bms yesterday. Patient denies shortness of breath, chest pain, nausea or vomiting. Objective - Vital Signs/Intake and Output Vital Signs (last 24 hours): Temp Pulse Resp BP Pulse Ox 99.2 F 85 20 123/79 97 04/09/17 08:51 04/09/17 08:51 04/09/17 08:51 04/09/17 08:51 04/09/17 08:51 Intake and Output: 04/09/17 04/09/17 06:59 18:59 Intake Total 1300 Balance 1300 - Medications Medications: Current Medications Ciprofloxacin (Cipro 400mg/200ml Dsw) 400 mg in 200 mls @ 133 mls/hr IVPB Q12H [facility] Last Admin: 04/09/17 06:18 Dose: 133 mls/hr Metronidazole (Flagyl) 500 mg in 100 mls @ 100 mls/hr IVPB Q8H [facility] Last Admin: 04/09/17 05:10 Dose: 100 mls/hr Sodium Chloride (Sodium Chloride 0.9%) 1,000 mls @ 100 mls/hr IV .Q10H [facility] Last Admin: 04/09/17 05:00 Dose: Not Given Pantoprazole Sodium (Protonix Inj) 40 mg IVP Q12H [facility] Last Admin: 04/09/17 05:10 Dose: 40 mg Potassium Chloride (K-Dur 20 Meq Er Tab) 40 meq PO DAILY [facility] Last Admin: 04/09/17 09:25 Dose: 40 meq Rosuvastatin Calcium (Crestor) 5 mg PO HS [facility] Last Admin: 04/08/17 22:02 Dose: 5 mg - Labs Labs: 04/09/17 07:17 04/09/17 07:17 PT 11.5 SECONDS (9.7-12.2) 04/08/17 12:18 INR 1.0 04/08/17 12:18 APTT 31 SECONDS (21-34) 04/08/17 12:18 - Constitutional Appears: Non-toxic, No Acute Distress - Head Exam Head Exam: ATRAUMATIC, NORMAL INSPECTION, NORMOCEPHALIC - Eye Exam Eye Exam: EOMI, Normal appearance - ENT Exam ENT Exam: Mucous Membranes Moist - Neck Exam Neck Exam: Full ROM - Respiratory Exam Respiratory Exam: Clear to Ausculation Bilateral, NORMAL BREATHING PATTERN. absent: Rales, Rhonchi, Wheezes, Respiratory Distress, Stridor - Cardiovascular Exam Cardiovascular Exam: REGULAR RHYTHM, RRR. absent: Gallop, Rubs, Murmur - GI/Abdominal Exam GI & Abdominal Exam: Soft, Tenderness, Normal Bowel Sounds - Extremities Exam Extremities Exam: Full ROM, Normal Inspection. absent: Pedal Edema - Neurological Exam Neurological Exam: Alert, Awake, Oriented x3 - Psychiatric Exam Psychiatric exam: Normal Affect, Normal Mood - Skin Skin Exam: Intact, Normal Color, Warm Assessment and Plan - Assessment and Plan (Free Text) Assessment: 1.) Lower GI Bleed - Admitted to telemetry floor - NPO changed to Clear Liquid Diet (okay to start per surgery and GI) - IV fluis NS @100cc/hr - GI Consult: Dr. Hdez --> help appreciated -Dr. Perez recommends: Check stools for pathogens. Consider elective colonoscopy. - f/u CBC with diff - Monitor H/H, 04/09: stable at 13.8 from 13.9 on 04/08 - Ordered Type/Cross 1 unit - PRN blood transfusion - Blood transfusion consent placed in chart - Protonix 40mg IV Q12h - Refrain from: NSAIDs, anticoagulation 2.) Abdominal Pain - f/u lipase, amylase - NPO changed to Clear Liquid Diet (okay to start per surgery and GI) - CT scan of Abdomen (IV contrast): Findings suggestive of segmental colitis affecting the descending colon and mid to distal splenic flexure. Diverticulitis is limited possibility with the other infectious or inflammatory causes possible. No abscess or free air. Trace fluid is seen the pelvis. Including the diverted diagnosis but not favored are ischemia and neoplasm. - IV fluids NS @100 cc/hr - Surgery Consult: Dr. Marion --> help appreciated - f/u occult blood, stool ova/parasite, stool leukocytes, stool culture, C. Diff toxin - Ciprofloxacin 400mg IV Q12H started 04/08/17 - Flagyl 500mg IV Q8H started 04/08/17 3.) Hypokalemia - stable at 4.0 on 04/09 4.) History of Hypertension - hold antihypertensives - monitor vital signs 5.) History of Hyperlipidemia - Hold statin - f/u Lipid panel, Triglycerides 69, Cholesterol 191, LDL 134, HDL 55 6.) History of Internal Hemorrhoids - Endoscopy Report 01/25/15: Nonspecific colitis involving the ascending colon; Internal hemorrhoids 7.) Tachycardia - ROSELIA x3 negative 8.) Leukocytosis - f/u blood cultures x2 - f/u UA:2+ protein, 1+ blood, 8rbcs, 6-10 hyaline casts - Urine Culture (prior to starting antibiotics) 9.) Prophylaxis - Contraindication for VTE - due to lower GI bleed - SCDs <Daquan Heller - Last Filed: 04/09/17 15:06> Objective - Vital Signs/Intake and Output Vital Signs (last 24 hours): Temp Pulse Resp BP Pulse Ox 99.2 F 85 20 123/79 97 04/09/17 08:51 04/09/17 08:51 04/09/17 08:51 04/09/17 08:51 04/09/17 08:51 Intake and Output: 04/09/17 04/09/17 06:59 18:59 Intake Total 1300 940 Balance 1300 940 - Medications Medications: Current Medications Ciprofloxacin (Cipro 400mg/200ml Dsw) 400 mg in 200 mls @ 133 mls/hr IVPB Q12H [facility] Last Admin: 04/09/17 06:18 Dose: 133 mls/hr Metronidazole (Flagyl) 500 mg in 100 mls @ 100 mls/hr IVPB Q8H [facility] Last Admin: 04/09/17 13:29 Dose: 100 mls/hr Sodium Chloride (Sodium Chloride 0.9%) 1,000 mls @ 100 mls/hr IV .Q10H [facility] Last Admin: 04/09/17 13:31 Dose: 100 mls/hr Pantoprazole Sodium (Protonix Inj) 40 mg IVP Q12H [facility] Last Admin: 09/04/17 05:10 Dose: 40 mg Potassium Chloride (K-Dur 20 Meq Er Tab) 40 meq PO DAILY [facility] Last Admin: 04/09/17 09:25 Dose: 40 meq Rosuvastatin Calcium (Crestor) 5 mg PO HS [facility] Last Admin: 04/08/17 22:02 Dose: 5 mg - Labs Labs: 04/09/17 07:17 04/09/17 07:17 PT 11.5 SECONDS (9.7-12.2) 04/08/17 12:18 INR 1.0 04/08/17 12:18 APTT 31 SECONDS (21-34) 04/08/17 12:18 Attending/Attestation - Attestation I have personally seen and examined this patient.: Yes I have fully participated in the care of the patient.: Yes I have reviewed all pertinent clinical information, including history, physical exam and plan: Yes Notes (Text): 04/09/17 14:52 Hospitalist Progress Note Patient was seen and examined at 10:15 AM 04/09/17 Currently upon FULL ROS: 2 more bowel movements this morning that had blood in them Tolerating liquid diet Some dizziness when she initially gets up out of bed to go to the bathroom LUQ pain is still present but now only if she or examining physician presses in this area NO other complaint supon FULL ROS Exam: General: AAOx3, NAD HEENT: NCA, EOMI, PERRLA, NO lymphadenopathy, NO thyromegaly, NO pharyngeal erythema/exudate Cardio: NS1 and NS2, NO M/R/G Respiratory: CTA B/L, NO R/R/W GI: BSx4, Soft, NO HSM, NO guarding/rebound tenderness, (+) Tenderness to palpation of the LUQ Ext: Bilateral Pulses UE and LE are strong and equal, Capillary Refill is 2 seconds, NO edema Neuro: CN II through XII are grossly intact Assessments: 1). Lower GI Bleed: IVF, clear liquid diet, Stool Occult is POSITIVE therefore we will speak with GI Dr. Hdez to see if in-patient colonoscopy can be performed or if this needs to wait considering the possibility of diverticulitis on the CT Abdomen/Pelvis, HgB/Hct are stable but consent for PRBC transfusion already obtained by Medicine Team and placed in chart. 2). Abdominal Pain: CT Abdomen/Pelvis shows segmental colitis of descending colon and mid to distal splenic flexture with possible diverticulitis and NO abscess/free air, Cipro and Flagyl, F/U Stool Studies, Surgery Dr. Marion is also following and no surgical intervention at this time. 3). Hypokalemia: resolved, KCL 4). Hx HTN: can not provide name of medication at home, called [facility] [phone] today but they appear to be closed and will try again on 04/10/17, blood pressure is currently under control 5). HLD: Crestor 6). Internal Hemorrhoids with Nonspecific Colitis: as per endoscopy 01/25/15 7). Tachycardia: currently there is no tachycardia, Troponin x 3 are negative 8). Leukocytosis: trending down, F/U Blood and Urine Cultures, Cipro and Flagyl , NO fever 9). 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 10). Prophylaxis: SCDs, Protonix Daquan Heller D.O.
[2017-04-10] MEDS: Sodium Chloride 0.9% 1,000 ML IV SCH ×4 (00:30→21:33)
[2017-04-10] MEDS: metroNIDAZOLE IV 500 mg/100 ml 500 MG/100 ML BAG IVPB SCH ×3 (05:00→21:48)
[2017-04-10] MEDS: Ciprofloxacin 400mg/200ml D5W 400 MG/200 ML BAG IVPB SCH ×2 (06:15→18:12)
[2017-04-10 07:47] LABS: BASO % 0.2 % (0.0-2.0); EOS # 0.1 K/uL (0.0-0.7); EOS % 0.7 % (0.0-4.0); HEMATOCRIT 36.6 % (34.0-47.0); LYMPH # 2.7 K/uL (1.0-4.3); LYMPH % 22.4 % (20.0-40.0); MEAN CELL VOLUME 93.2 fL (81.0-99.0); MEAN CORPUSCULAR HEMOGLOBIN 30.7 pg (27.0-31.0); MEAN CORPUSCULAR HGB CONC 32.9 g/dL (33.0-37.0); MEAN PLATELET VOLUME 7.4 fL (7.2-11.7); MONO # 0.7 K/uL (0.0-0.8); MONO % 6.1 % (0.0-10.0); RED CELL DISTRIBUTION WIDTH 13.5 % (11.5-14.5); WHITE BLOOD COUNT 12.2 K/uL (4.8-10.8)
--- NOTE | 2017-04-10 07:56 | CP.PCM.PN ---
<AlejandroFiona - Last Filed: 04/10/17 13:09> Subjective - Date & Time of Evaluation Date of Evaluation: 04/10/17 Time of Evaluation: 07:56 - Subjective Subjective: Patient was seen and evaluated at bedside and states that she still has LLQ pain which she rates a 3-4/10. She describes the pain as sharp and states the pain increases when she palpates her LLQ. She denies any bright red blood in her stool but states that she had 2 episodes of diarrhea this morning. She says that she doesnt have much of an appetite and had some difficulty sleeping. Patient admits to come chills but denies fever. Patient denies SHIN, sore throat, Chest pain, palpitations, SOB, cough, N/V/C, Hematuria, dysuria, LE pain, or swelling Objective - Vital Signs/Intake and Output Vital Signs (last 24 hours): Temp Pulse Resp BP Pulse Ox 98.3 F 73 20 100/63 96 04/09/17 23:30 04/10/17 00:00 04/09/17 23:30 04/09/17 23:30 04/09/17 23:30 - Medications Medications: Current Medications Ciprofloxacin (Cipro 400mg/200ml Dsw) 400 mg in 200 mls @ 133 mls/hr IVPB Q12H [facility] Last Admin: 04/10/17 06:15 Dose: 133 mls/hr Metronidazole (Flagyl) 500 mg in 100 mls @ 100 mls/hr IVPB Q8H [facility] Last Admin: 04/10/17 05:00 Dose: 100 mls/hr Sodium Chloride (Sodium Chloride 0.9%) 1,000 mls @ 100 mls/hr IV .Q10H [facility] Last Admin: 04/10/17 00:30 Dose: Not Given Pantoprazole Sodium (Protonix Inj) 40 mg IVP Q12H [facility] Last Admin: 04/10/17 06:00 Dose: 40 mg Potassium Chloride (K-Dur 20 Meq Er Tab) 40 meq PO DAILY [facility] Last Admin: 04/09/17 09:25 Dose: 40 meq Rosuvastatin Calcium (Crestor) 5 mg PO HS [facility] Last Admin: 04/09/17 21:32 Dose: 5 mg - Labs Labs: 04/10/17 07:24 04/09/17 07:17 PT 11.5 SECONDS (9.7-12.2) 04/08/17 12:18 INR 1.0 04/08/17 12:18 APTT 31 SECONDS (21-34) 04/08/17 12:18 - Constitutional Appears: Non-toxic, No Acute Distress - Head Exam Head Exam: NORMAL INSPECTION - Eye Exam Eye Exam: EOMI - ENT Exam ENT Exam: Mucous Membranes Moist - Respiratory Exam Respiratory Exam: Clear to Ausculation Bilateral, NORMAL BREATHING PATTERN - Cardiovascular Exam Cardiovascular Exam: REGULAR RHYTHM, +S1, +S2 - GI/Abdominal Exam GI & Abdominal Exam: Soft, Tenderness (LLQ with palpation to LLQ and RLQ). absent: Distended - Extremities Exam Extremities Exam: Normal Inspection. absent: Calf Tenderness, Pedal Edema - Neurological Exam Neurological Exam: Alert, Awake - Psychiatric Exam Psychiatric exam: Normal Affect, Normal Mood - Skin Skin Exam: Dry, Intact, Warm Assessment and Plan - Assessment and Plan (Free Text) Assessment: 1.) Lower GI Bleed - Admitted to telemetry floor - NPO changed to Clear Liquid Diet (okay to start per surgery and GI) - IV fluis NS @100cc/hr - GI Consult: Dr. Hdez -Dr. Perez recommends: Check stools for pathogens. Consider elective colonoscopy. - f/u CBC with diff - Monitor H/H, 04/09: stable at 13.8 from 13.9 on 04/08 - Ordered Type/Cross 1 unit - PRN blood transfusion - Blood transfusion consent placed in chart - Protonix 40mg IV Q12h - Refrain from: NSAIDs, anticoagulation 2.) Abdominal Pain - lipase = 80, amylase = 51 - NPO changed to Clear Liquid Diet (okay to start per surgery and GI) - CT scan of Abdomen (IV contrast): Findings suggestive of segmental colitis affecting the descending colon and mid to distal splenic flexure. Diverticulitis is limited possibility with the other infectious or inflammatory causes possible. No abscess or free air. Trace fluid is seen the pelvis. Including the diverted diagnosis but not favored are ischemia and neoplasm. - IV fluids NS @100 cc/hr - Surgery Consult: Dr. Marion - occult blood pos, stool leukocytes pos, C. Diff toxin neg - f/u stool ova/parasite, stool culture - Ciprofloxacin 400mg IV Q12H started 04/08/17 - Flagyl 500mg IV Q8H started 04/08/17 3.) Hypokalemia - 3.8 on 04/10 - 4.) History of Hypertension - hold antihypertensives - monitor vital signs 5.) History of Hyperlipidemia - Hold statin - Lipid panel, Triglycerides 69, Cholesterol 191, LDL 134, HDL 55 6.) History of Internal Hemorrhoids - Endoscopy Report 01/25/15: Nonspecific colitis involving the ascending colon; Internal hemorrhoids 7.) Tachycardia - ROSELIA x3 negative 8.) Leukocytosis - blood cultures: No growth x24h - f/u UA:2+ protein, 1+ blood, 8rbcs, 6-10 hyaline casts - Urine Culture (prior to starting antibiotics): multiple species, probably contaminated 9.) Prophylaxis - Contraindication for VTE - due to lower GI bleed - SCDs Home medications per [facility] in [place] Amlodipine 5mg QD Lipitor 40mg QD Meclizine 25mg TID PRN Nexium 40mg QD Voltaren gel <Daquan Heller - Last Filed: 04/10/17 17:17> Objective - Vital Signs/Intake and Output Vital Signs (last 24 hours): Temp Pulse Resp BP Pulse Ox 98.0 F 73 20 139/80 97 04/10/17 08:32 04/10/17 08:32 04/10/17 08:32 04/10/17 08:32 04/10/17 08:32 Intake and Output: 04/10/17 04/10/17 06:59 18:59 Intake Total 800 Balance 800 - Medications Medications: Current Medications Ciprofloxacin (Cipro 400mg/200ml Dsw) 400 mg in 200 mls @ 133 mls/hr IVPB Q12H [facility] Last Admin: 04/10/17 06:15 Dose: 133 mls/hr Metronidazole (Flagyl) 500 mg in 100 mls @ 100 mls/hr IVPB Q8H [facility] Last Admin: 04/10/17 13:38 Dose: 100 mls/hr Sodium Chloride (Sodium Chloride 0.9%) 1,000 mls @ 100 mls/hr IV .Q10H [facility] Last Admin: 04/10/17 11:30 Dose: Not Given Pantoprazole Sodium (Protonix Inj) 40 mg IVP Q12H [facility] Last Admin: 04/10/17 06:00 Dose: 40 mg Potassium Chloride (K-Dur 20 Meq Er Tab) 40 meq PO DAILY [facility] Last Admin: 04/10/17 10:58 Dose: 40 meq Rosuvastatin Calcium (Crestor) 20 mg PO HS [facility] - Labs Labs: 04/10/17 07:24 04/10/17 07:24 PT 11.5 SECONDS (9.7-12.2) 04/08/17 12:18 INR 1.0 04/08/17 12:18 APTT 31 SECONDS (21-34) 04/08/17 12:18 Attending/Attestation - Attestation I have personally seen and examined this patient.: Yes I have fully participated in the care of the patient.: Yes I have reviewed all pertinent clinical information, including history, physical exam and plan: Yes Notes (Text): 04/10/17 17:13 Hospitalist Progress Note Patient was seen and examined at 12:45 PM 04/10/17 Currently upon FULL ROS: First bowel movement this morning had dark blood and second one 30 minutes prior to my exam did not have any blood Tolerating FULL DIET Some dizziness when she initially gets up out of bed to go to the bathroom LUQ pain is still present but now only if she or examining physician presses in this area NO other complaint supon FULL ROS Exam: General: AAOx3, NAD HEENT: NCA, EOMI, PERRLA, NO lymphadenopathy, NO thyromegaly, NO pharyngeal erythema/exudate Cardio: NS1 and NS2, NO M/R/G Respiratory: CTA B/L, NO R/R/W GI: BSx4, Soft, NO HSM, NO guarding/rebound tenderness, (+) Tenderness to palpation of the LUQ Ext: Bilateral Pulses UE and LE are strong and equal, Capillary Refill is 2 seconds, NO edema Neuro: CN II through XII are grossly intact Assessments: 1). Lower GI Bleed: IVF, regular full diet, hold off on Colonoscopy for now, considering the possibility of ischemic colitis a CT Angiogram of the Abdomen/ Pelvis was ordered by GI Dr. Hdez and his help is greatly appreciated, HgB/ Hct are stable but consent for PRBC transfusion already obtained by Medicine Team and placed in chart. 2). Abdominal Pain: CT Abdomen/Pelvis shows segmental colitis of descending colon and mid to distal splenic flexture with possible diverticulitis and NO abscess/free air, Cipro and Flagyl, F/U Stool Studies, Surgery Dr. Marion is also following and no surgical intervention at this time. 3). Hypokalemia: resolved, KCL 4). Hx HTN: confirmed with [facility] [phone] today that patient is on Amlodipine 5 mg PO 1x/day however as blood pressure is currently under control, this is being held 5). HLD: Crestor 20 mg PO QHS as she is on Atorvastatin 40 mg PO QHS at home 6). Internal Hemorrhoids with Nonspecific Colitis: as per endoscopy 01/25/15 7). Tachycardia: currently there is no tachycardia, Troponin x 3 are negative 8). Leukocytosis: trending down, F/U Blood and Urine Cultures, Cipro and Flagyl , NO fever 9). 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 10). Prophylaxis: SCDs, Protonix I explained to patient and Sons Tommie [phone] and Pierre [phone] Angiogram Abdomen/Pelvis and they agreed. Daquan Heller D.O.
[2017-04-10 08:00] LABS: CHLORIDE 108 mmol/L (98-107); SODIUM 143 mmol/L (132-148)
[2017-04-10 08:01] LABS: POTASSIUM 4.1 mmol/L (3.6-5.2)
[2017-04-10 08:03] LABS: ALKALINE PHOSPHATASE 87 U/L (38-126); ALT/SGPT 31 U/L (9-52); AST/SGOT 20 U/L (14-36); BILIRUBIN,TOTAL 0.8 mg/dL (0.2-1.3); BLOOD UREA NITROGEN 8 mg/dL (7-17); CARBON DIOXIDE 25 mmol/L (22-30); GFR AFRICAN-AMERICAN > 60; GLUCOSE,RANDOM 90 mg/dL (65-105); PHOSPHOROUS 3.1 mg/dL (2.5-4.5); TOTAL PROTEIN 5.7 g/dL (6.3-8.3)
[2017-04-10 08:04] LABS: MAGNESIUM 1.8 mg/dL (1.6-2.3)
--- NOTE | 2017-04-10 09:21 | CP.PCM.PN ---
Subjective - Date & Time of Evaluation Date of Evaluation: 04/10/17 Time of Evaluation: 09:21 - Subjective Subjective: Patient was seen and examined at bedside in no acute distress. Patient reports having left upper quadrant abdominal pain. Patient has a decreased appetite, but tolerating food. She reports having a normal BM this morning. Patient denies chest pain, headaches, n/v, fevers, leg pain. Objective - Vital Signs/Intake and Output Vital Signs (last 24 hours): Temp Pulse Resp BP Pulse Ox 98.0 F 73 20 139/80 97 04/10/17 08:32 04/10/17 08:32 04/10/17 08:32 04/10/17 08:32 04/10/17 08:32 Intake and Output: 04/10/17 04/10/17 06:59 18:59 Intake Total 800 Balance 800 - Medications Medications: Current Medications Ciprofloxacin (Cipro 400mg/200ml Dsw) 400 mg in 200 mls @ 133 mls/hr IVPB Q12H [facility] Last Admin: 04/10/17 06:15 Dose: 133 mls/hr Metronidazole (Flagyl) 500 mg in 100 mls @ 100 mls/hr IVPB Q8H [facility] Last Admin: 04/10/17 05:00 Dose: 100 mls/hr Sodium Chloride (Sodium Chloride 0.9%) 1,000 mls @ 100 mls/hr IV .Q10H [facility] Last Admin: 04/10/17 00:30 Dose: Not Given Pantoprazole Sodium (Protonix Inj) 40 mg IVP Q12H [facility] Last Admin: 04/10/17 06:00 Dose: 40 mg Potassium Chloride (K-Dur 20 Meq Er Tab) 40 meq PO DAILY [facility] Last Admin: 04/09/17 09:25 Dose: 40 meq Rosuvastatin Calcium (Crestor) 5 mg PO HS [facility] Last Admin: 04/09/17 21:32 Dose: 5 mg - Labs Labs: 04/10/17 07:24 04/10/17 07:24 PT 11.5 SECONDS (9.7-12.2) 04/08/17 12:18 INR 1.0 04/08/17 12:18 APTT 31 SECONDS (21-34) 04/08/17 12:18 - Head Exam Head Exam: ATRAUMATIC, NORMAL INSPECTION - Eye Exam Eye Exam: EOMI, Normal appearance - ENT Exam ENT Exam: Mucous Membranes Moist - Respiratory Exam Respiratory Exam: Clear to Ausculation Bilateral, NORMAL BREATHING PATTERN. absent: Rales, Rhonchi, Wheezes - Cardiovascular Exam Cardiovascular Exam: +S1, +S2. absent: Bradycardia, Tachycardia - GI/Abdominal Exam GI & Abdominal Exam: Soft, Tenderness (LUQ), Normal Bowel Sounds. absent: Distended, Firm - Extremities Exam Extremities Exam: absent: Pedal Edema, Tenderness - Neurological Exam Neurological Exam: Alert, Awake, Oriented x3 - Psychiatric Exam Psychiatric exam: Normal Affect, Normal Mood - Skin Skin Exam: Dry, Intact, Normal Color, Warm Assessment and Plan - Assessment and Plan (Free Text) Assessment: 76 year old female with descending colitis, diverticulitis, hemoglobin of 16.1. - No surgical intervention at this time. - Hemoglobin has normalized. Continue to monitor H/H. - Continue medical management as per hospitalist team.
--- NOTE | 2017-04-10 10:45 | CP.PCM.PN ---
Subjective - Date & Time of Evaluation Date of Evaluation: 04/10/17 Time of Evaluation: 10:40 - Subjective Subjective: Patient denies having nausea, vomiting today. She continues to complain of left mid-abdominal pain, worse with palpation. She has not had a bowel movement or bleeding per rectum today. Objective - Vital Signs/Intake and Output Vital Signs (last 24 hours): Temp Pulse Resp BP Pulse Ox 98.0 F 73 20 139/80 97 04/10/17 08:32 04/10/17 08:32 04/10/17 08:32 04/10/17 08:32 04/10/17 08:32 Intake and Output: 04/10/17 04/10/17 06:59 18:59 Intake Total 800 Balance 800 - Medications Medications: Current Medications Ciprofloxacin (Cipro 400mg/200ml Dsw) 400 mg in 200 mls @ 133 mls/hr [facility]PB [facility]12H [facility] Last Admin: 04/10/17 06:15 Dose: 133 mls/hr Metronidazole (Flagyl) 500 mg in 100 mls @ 100 mls/hr IVPB Q8H [facility] Last Admin: 04/10/17 05:00 Dose: 100 mls/hr Sodium Chloride (Sodium Chloride 0.9%) 1,000 mls @ 100 mls/hr IV .Q10H [facility] Last Admin: 04/10/17 00:30 Dose: Not Given Pantoprazole Sodium (Protonix Inj) 40 mg IVP Q12H [facility] Last Admin: 04/10/17 06:00 Dose: 40 mg Potassium Chloride (K-Dur 20 Meq Er Tab) 40 meq PO DAILY [facility] Last Admin: 04/09/17 09:25 Dose: 40 meq Rosuvastatin Calcium (Crestor) 5 mg PO HS [facility] Last Admin: 04/09/17 21:32 Dose: 5 mg - Labs Labs: 04/10/17 07:24 04/10/17 07:24 PT 11.5 SECONDS (9.7-12.2) 04/08/17 12:18 INR 1.0 04/08/17 12:18 APTT 31 SECONDS (21-34) 04/08/17 12:18 - Constitutional Appears: No Acute Distress - Head Exam Head Exam: ATRAUMATIC, NORMOCEPHALIC - Eye Exam Eye Exam: EOMI, PERRL - Neck Exam Neck Exam: absent: Lymphadenopathy, Thyromegaly - Cardiovascular Exam Cardiovascular Exam: REGULAR RHYTHM, +S1, +S2. absent: Gallop, Rubs, Murmur - GI/Abdominal Exam GI & Abdominal Exam: Soft, Tenderness, Normal Bowel Sounds. absent: Mass, Organomegaly Additional comments: Moderate tenderness to palpation in left mid abdomen and LLQ without rebound - Rectal Exam Rectal Exam: Deferred - Extremities Exam Extremities Exam: absent: Calf Tenderness, Pedal Edema Assessment and Plan (1) Hematochezia Assessment & Plan: Patient has significant pain and tenderness on the left side of the abdomen, but no bleeding today. The hemoglobin dropped from 13.8 to 12.1. Will check CT angiogram and continue observation. Status: Acute
[2017-04-10] MEDS: Potassium Chloride 20 mEq ER Tab PO SCH (10:58)
[2017-04-11] MEDS: metroNIDAZOLE IV 500 mg/100 ml 500 MG/100 ML BAG IVPB SCH ×3 (05:38→21:26)
[2017-04-11] MEDS: Sodium Chloride 0.9% 1,000 ML IV SCH ×3 (06:19→22:36)
[2017-04-11 06:32] LABS: BASO % 0.2 % (0.0-2.0); EOS # 0.1 K/uL (0.0-0.7); HEMATOCRIT 36.6 % (34.0-47.0); LYMPH # 2.9 K/uL (1.0-4.3); LYMPH % 29.3 % (20.0-40.0); MEAN CELL VOLUME 92.2 fL (81.0-99.0); MEAN CORPUSCULAR HEMOGLOBIN 31.9 pg (27.0-31.0); MEAN CORPUSCULAR HGB CONC 34.6 g/dL (33.0-37.0); MEAN PLATELET VOLUME 7.1 fL (7.2-11.7); MONO # 0.7 K/uL (0.0-0.8); MONO % 6.7 % (0.0-10.0); RED CELL DISTRIBUTION WIDTH 13.5 % (11.5-14.5); WHITE BLOOD COUNT 9.8 K/uL (4.8-10.8)
[2017-04-11] MEDS: Ciprofloxacin 400mg/200ml D5W 400 MG/200 ML BAG IVPB SCH ×2 (06:40→17:57)
[2017-04-11 07:35] LABS: CHLORIDE 108 mmol/L (98-107); POTASSIUM 3.9 mmol/L (3.6-5.2); SODIUM 140 mmol/L (132-148)
[2017-04-11 07:37] LABS: AST/SGOT 23 U/L (14-36); BILIRUBIN,TOTAL 0.7 mg/dL (0.2-1.3); CARBON DIOXIDE 24 mmol/L (22-30); GFR AFRICAN-AMERICAN > 60
[2017-04-11 07:38] LABS: ALB/GLOB RATIO 1.1 (1.0-2.1); ALKALINE PHOSPHATASE 89 U/L (38-126); ALT/SGPT 29 U/L (9-52); BLOOD UREA NITROGEN 9 mg/dL (7-17); CALCIUM 8.5 mg/dl (8.6-10.4); GLUCOSE,RANDOM 84 mg/dL (65-105); MAGNESIUM 1.8 mg/dL (1.6-2.3); TOTAL PROTEIN 6.1 g/dL (6.3-8.3)
--- NOTE | 2017-04-11 07:38 | CP.PCM.PN ---
Subjective - Date & Time of Evaluation Date of Evaluation: 04/11/17 Time of Evaluation: 07:31 - Subjective Subjective: Patient was seen and examined at bedside in no acute distress. Patient reports feeling better but still has left sided abdominal pain. Patient is still tolerating her diet well. 12-point ROS otherwise negative. Objective - Vital Signs/Intake and Output Vital Signs (last 24 hours): Temp Pulse Resp BP Pulse Ox 98.0 F 74 20 117/67 96 04/10/17 23:40 04/10/17 23:40 04/10/17 23:40 04/10/17 23:40 04/10/17 23:40 Intake and Output: 04/11/17 04/11/17 06:59 18:59 Intake Total 2089 Balance 2089 - Medications Medications: Current Medications Ciprofloxacin (Cipro 400mg/200ml Dsw) 400 mg in 200 mls @ 133 mls/hr IVPB Q12H [facility] Last Admin: 04/11/17 06:40 Dose: 133 mls/hr Metronidazole (Flagyl) 500 mg in 100 mls @ 100 mls/hr IVPB Q8H [facility] Last Admin: 04/11/17 05:38 Dose: 100 mls/hr Sodium Chloride (Sodium Chloride 0.9%) 1,000 mls @ 100 mls/hr IV .Q10H [facility] Last Admin: 04/11/17 06:19 Dose: Not Given Pantoprazole Sodium (Protonix Inj) 40 mg IVP Q12H [facility] Last Admin: 04/11/17 06:23 Dose: 40 mg Potassium Chloride (K-Dur 20 Meq Er Tab) 40 meq PO DAILY [facility] Last Admin: 04/10/17 10:58 Dose: 40 meq Rosuvastatin Calcium (Crestor) 20 mg PO HS [facility] Last Admin: 04/10/17 21:48 Dose: 20 mg - Labs Labs: 04/11/17 06:20 04/10/17 07:24 PT 11.5 SECONDS (9.7-12.2) 04/08/17 12:18 INR 1.0 04/08/17 12:18 APTT 31 SECONDS (21-34) 04/08/17 12:18 - Head Exam Head Exam: ATRAUMATIC, NORMAL INSPECTION - Eye Exam Eye Exam: EOMI, Normal appearance - ENT Exam ENT Exam: Mucous Membranes Moist - Respiratory Exam Respiratory Exam: Clear to Ausculation Bilateral, NORMAL BREATHING PATTERN. absent: Rales, Rhonchi, Wheezes - Cardiovascular Exam Cardiovascular Exam: REGULAR RHYTHM, +S1, +S2 - GI/Abdominal Exam GI & Abdominal Exam: Soft, Tenderness (LUQ). absent: Distended, Firm - Neurological Exam Neurological Exam: Alert, Awake, Oriented x3 - Psychiatric Exam Psychiatric exam: Normal Affect, Normal Mood - Skin Skin Exam: Dry, Intact, Normal Color, Warm Assessment and Plan - Assessment and Plan (Free Text) Assessment: Patient is a 76 year old female with descending colitis and diverticulitis. - No surgical intervention at this time. - Follow up CT Angio of abdomen/pelvis. - Continue medical management as per hospitalist team.
[2017-04-11] MEDS ORDERED: Barium Sulfate Susp 0.1% w/v, 0.1% w/w 450 mL Bottle PO ONE (08:53)
[2017-04-11] MEDS ORDERED: Iohexol 350mg/ml 100 ML ONE (09:08)
[2017-04-11] MEDS: Potassium Chloride 20 mEq ER Tab PO SCH (10:56)
--- NOTE | 2017-04-11 11:25 | CP.PCM.PN ---
<Fiona Allen - Last Filed: 04/11/17 16:47> Subjective - Date & Time of Evaluation Date of Evaluation: 04/11/17 Time of Evaluation: 11:18 - Subjective Subjective: Patient was seen and evaluated at bedside and states that she feels fine and slept on & off last night. She states her appetite is good and is able to tolerate a regular diet. She rates her LLQ abdominal pain as a 2-3/10 currently but a 6/10 with palpation. She denies any bright red blood in her stool. Patient admits to chills but denies F/SHIN/Sore throat/CP/Palpitations/SOB/Cough/N /V/D/C/Hematuria/Dysuria/LE pain or swelling. Objective - Vital Signs/Intake and Output Vital Signs (last 24 hours): Temp Pulse Resp BP Pulse Ox 98.1 F 70 20 122/73 97 04/11/17 08:19 04/11/17 08:19 04/11/17 08:19 04/11/17 08:19 04/11/17 08:19 Intake and Output: 04/11/17 04/11/17 06:59 18:59 Intake Total 2089 Balance 0 - Medications Medications: Current Medications Ciprofloxacin (Cipro 400mg/200ml Dsw) 400 mg in 200 mls @ 133 mls/hr IVPB Q12H [facility] Last Admin: 04/11/17 06:40 Dose: 133 mls/hr Metronidazole (Flagyl) 500 mg in 100 mls @ 100 mls/hr IVPB Q8H [facility] Last Admin: 04/11/17 05:38 Dose: 100 mls/hr Sodium Chloride (Sodium Chloride 0.9%) 1,000 mls @ 100 mls/hr IV .Q10H [facility] Last Admin: 04/11/17 06:19 Dose: Not Given Pantoprazole Sodium (Protonix Inj) 40 mg IVP Q12H [facility] Last Admin: 04/11/17 06:23 Dose: 40 mg Potassium Chloride (K-Dur 20 Meq Er Tab) 40 meq PO DAILY [facility] Last Admin: 04/11/17 10:56 Dose: 40 meq Rosuvastatin Calcium (Crestor) 20 mg PO HS [facility] Last Admin: 04/10/17 21:48 Dose: 20 mg - Labs Labs: 04/11/17 06:20 04/11/17 06:20 PT 11.5 SECONDS (9.7-12.2) 04/08/17 12:18 INR 1.0 04/08/17 12:18 APTT 31 SECONDS (21-34) 04/08/17 12:18 - Constitutional Appears: Non-toxic, No Acute Distress - Head Exam Head Exam: NORMAL INSPECTION - Eye Exam Eye Exam: EOMI - ENT Exam ENT Exam: Mucous Membranes Moist - Respiratory Exam Respiratory Exam: Clear to Ausculation Bilateral, NORMAL BREATHING PATTERN - Cardiovascular Exam Cardiovascular Exam: REGULAR RHYTHM, +S1, +S2 - GI/Abdominal Exam GI & Abdominal Exam: Soft, Tenderness (LLQ to palpation ), Normal Bowel Sounds. absent: Distended - Extremities Exam Extremities Exam: Normal Inspection - Neurological Exam Neurological Exam: Alert, Awake - Psychiatric Exam Psychiatric exam: Normal Affect, Normal Mood - Skin Skin Exam: Dry, Intact, Normal Color, Warm Assessment and Plan - Assessment and Plan (Free Text) Assessment: Mason (son): [phone] Pierre (son): [phone] 1.) Lower GI Bleed - Admitted to telemetry floor - NPO changed to Clear Liquid Diet (okay to start per surgery and GI) - IV fluis NS @100cc/hr - GI Consult: Dr. Hdez -Dr. Perez recommends: Check stools for pathogens. Consider elective colonoscopy. - f/u CBC with diff - Monitor H/H, 04/09: stable at 13.8 from 13.9 on 04/08 - Ordered Type/Cross 1 unit - PRN blood transfusion - Blood transfusion consent placed in chart - Protonix 40mg IV Q12h - Refrain from: NSAIDs, anticoagulation 2.) Abdominal Pain - lipase = 80, amylase = 51 - NPO changed to Clear Liquid Diet (okay to start per surgery and GI) - CT scan of Abdomen (IV contrast): Findings suggestive of segmental colitis affecting the descending colon and mid to distal splenic flexure. Diverticulitis is limited possibility with the other infectious or inflammatory causes possible. No abscess or free air. Trace fluid is seen the pelvis. Including the diverted diagnosis but not favored are ischemia and neoplasm. - F/U CT angio - no evidence of vascular occlusion or significant occlusion; colitis of descending colon - IV fluids NS @100 cc/hr - Surgery Consult: Dr. Marion - occult blood pos, stool leukocytes pos, C. Diff toxin neg - f/u stool ova/parasite, stool culture - Ciprofloxacin 400mg IV Q12H started 04/08/17 - Flagyl 500mg IV Q8H started 04/08/17 3.) Hypokalemia - 3.9 on 04/11 4.) History of Hypertension - hold antihypertensives - monitor vital signs 5.) History of Hyperlipidemia - Hold statin - Lipid panel, Triglycerides 69, Cholesterol 191, LDL 134, HDL 55 6.) History of Internal Hemorrhoids - Endoscopy Report 01/25/15: Nonspecific colitis involving the ascending colon; Internal hemorrhoids 7.) Tachycardia - ROSELIA x3 negative 8.) Leukocytosis - blood cultures: No growth x24h - f/u UA:2+ protein, 1+ blood, 8rbcs, 6-10 hyaline casts - Urine Culture (prior to starting antibiotics): multiple species, probably contaminated 9.) Prophylaxis - Contraindication for VTE - due to lower GI bleed - SCDs Home medications per [facility] pharmacy in [place] (holding, patient stable) Amlodipine 5mg QD Lipitor 40mg QD Meclizine 25mg TID PRN Nexium 40mg QD Voltaren gel Disposition: Patient likely will be discharged tomorrow if medically stable. Patient will need colonoscopy 4-6 weeks after resolution of colitis. <Daquan Heller - Last Filed: 04/11/17 17:03> Objective - Vital Signs/Intake and Output Vital Signs (last 24 hours): Temp Pulse Resp BP Pulse Ox 97.6 F 82 20 122/73 99 04/11/17 16:00 04/11/17 16:00 04/11/17 16:00 04/11/17 08:19 04/11/17 16:00 Intake and Output: 04/11/17 04/11/17 06:59 18:59 Intake Total 2089 1100 Balance 2089 1100 - Medications Medications: Current Medications Ciprofloxacin (Cipro 400mg/200ml Dsw) 400 mg in 200 mls @ 133 mls/hr IVPB Q12H [facility] Last Admin: 04/11/17 06:40 Dose: 133 mls/hr Metronidazole (Flagyl) 500 mg in 100 mls @ 100 mls/hr IVPB Q8H [facility] Last Admin: 04/11/17 14:31 Dose: 100 mls/hr Sodium Chloride (Sodium Chloride 0.9%) 1,000 mls @ 100 mls/hr IV .Q10H [facility] Last Admin: 04/11/17 12:55 Dose: 100 mls/hr Pantoprazole Sodium (Protonix Inj) 40 mg IVP Q12H [facility] Last Admin: 04/11/17 06:23 Dose: 40 mg Potassium Chloride (K-Dur 20 Meq Er Tab) 40 meq PO DAILY [facility] Last Admin: 04/11/17 10:56 Dose: 40 meq Rosuvastatin Calcium (Crestor) 20 mg PO HS [facility] Last Admin: 04/10/17 21:48 Dose: 20 mg - Labs Labs: 04/11/17 06:20 04/11/17 06:20 PT 11.5 SECONDS (9.7-12.2) 04/08/17 12:18 INR 1.0 04/08/17 12:18 APTT 31 SECONDS (21-34) 04/08/17 12:18 Attending/Attestation - Attestation I have personally seen and examined this patient.: Yes I have fully participated in the care of the patient.: Yes I have reviewed all pertinent clinical information, including history, physical exam and plan: Yes Notes (Text): 04/11/17 16:54 Hospitalist Progress Note Patient was seen and examined at 1:15 PM 04/11/17 Currently upon FULL ROS: First bowel movement this morning had dark blood and second one 30 minutes prior to my exam did not have any blood Tolerating FULL DIET Some dizziness when she initially gets up out of bed to go to the bathroom LUQ pain is still present but now only if she or examining physician presses in this area NO other complaint supon FULL ROS Exam: General: AAOx3, NAD HEENT: NCA, EOMI, PERRLA, NO lymphadenopathy, NO thyromegaly, NO pharyngeal erythema/exudate Cardio: NS1 and NS2, NO M/R/G Respiratory: CTA B/L, NO R/R/W GI: BSx4, Soft, NO HSM, NO guarding/rebound tenderness, (+) Tenderness to palpation of the LUQ Ext: Bilateral Pulses UE and LE are strong and equal, Capillary Refill is 2 seconds, NO edema Neuro: CN II through XII are grossly intact Assessments: 1). Lower GI Bleed: IVF, regular full diet, hold off on Colonoscopy for now, considering the possibility of ischemic colitis a CT Angiogram of the Abdomen/ Pelvis was ordered by GI Dr. Hdez and his help is greatly appreciated, HgB/ Hct are stable but consent for PRBC transfusion already obtained by Medicine Team and placed in chart. 2). Abdominal Pain: CT Abdomen/Pelvis shows segmental colitis of descending colon and mid to distal splenic flexture with possible diverticulitis and NO abscess/free air, Cipro and Flagyl, F/U Stool Studies, Surgery Dr. Marion is also following and no surgical intervention at this time. CT Angiogram of the Abdomen and Pelvis did not show any thrombosis but did redomonstrate evidence of colitis. Continue the Cipro and Flagyl for a total of 14 days and patient will need outpatient Colonoscopy in about 6 weeks. 3). Hypokalemia: resolved, KCL 4). Hx HTN: confirmed with [facility] [phone] that patient is on Amlodipine 5 mg PO 1x/day however as blood pressure is currently under control, this is being held 5). HLD: Crestor 20 mg PO QHS as she is on Atorvastatin 40 mg PO QHS at home 6). Internal Hemorrhoids with Nonspecific Colitis: as per endoscopy 01/25/15 7). Tachycardia: currently there is no tachycardia, Troponin x 3 are negative 8). 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 10). Prophylaxis: SCDs, Protonix Spoke with ward and her Son Tommie [phone] and explained the above. Daquan Heller D.O.
--- NOTE | 2017-04-11 11:51 | CT ---
PROCEDURE: CT Angiography Abdomen, Pelvis and Lower Extremity with Contrast HISTORY: Ischemic colitis COMPARISON: 04/08/2017 TECHNIQUE: Technique: CT angiography of the abdomen, pelvis and bilateral lower extremities performed in the arterial phase of enhancement. Coronal and sagittal reformats, and well as rotating MIP images of the vessels generated at the workstation. Intravenous contrast dose: 100 mL Visipaque 320 Radiation dose: Total exam DLP = 546.51 mGy-cm. This CT exam was performed using one or more of the following dose reduction techniques: Automated exposure control, adjustment of the mA and/or kV according to patient size, and/or use of iterative reconstruction technique. FINDINGS: CT ANGIOGRAPHY: ABDOMINAL AORTA:: No aneurysmal dilatation. No evidence of dissection. MAJOR AORTIC BRANCHES: Celiac [place]: Unremarkable. No evidence of occlusion or significant stenosis. . Superior mesenteric artery: Unremarkable. No evidence of occlusion or significant stenosis. Inferior mesenteric artery: Unremarkable. No evidence of occlusion or significant stenosis. Renal arteries: Single renal artery supplies each kidney. No evidence of occlusion or significant stenosis. PELVIC ARTERIES: Right Common Iliac: Unremarkable. Right External Iliac: Unremarkable. Right Internal Iliac: Unremarkable. Left Common Iliac: Unremarkable. Left External Iliac: Unremarkable. Left Internal Iliac: Unremarkable. NON-ANGIOGRAPHIC ASPECT OF THE EXAM: LOWER THORAX: Minimal linear scar/atelectasis in both lower lobes. LIVER: Unremarkable. No gross lesion or ductal dilatation. GALLBLADDER AND BILE DUCTS: Unremarkable. PANCREAS: Unremarkable. No gross lesion or ductal dilatation. SPLEEN: Unremarkable. ADRENALS: Unremarkable. No mass. KIDNEYS AND URETERS: Unremarkable. No hydronephrosis. No solid mass. STOMACH AND BOWEL: There is mild mural thickening of the entire descending colon with pericolonic inflammatory stranding. This is nonspecific and may reflect an infectious colitis, inflammatory colitis or ischemic colitis. APPENDIX: Normal appendix. PERITONEUM: Unremarkable. No free fluid. No free air. LYMPH NODES: Unremarkable. No enlarged lymph nodes. BLADDER: Unremarkable. REPRODUCTIVE: Unremarkable. BONES: Multi level degenerative disc disease. No acute fracture. OTHER FINDINGS: None. IMPRESSION: Nonspecific colitis involving descending colon only. No evidence of vascular occlusion or significant stenosis. No other significant abnormality identified.
--- NOTE | 2017-04-11 16:07 | CP.PCM.PN ---
Subjective - Date & Time of Evaluation Date of Evaluation: 04/11/17 Time of Evaluation: 16:05 - Subjective Subjective: Patient states that the abdominal pain is about the same. She is tolerating a heart healthy diet. She denies having nausea or vomiting. She had three forme bowel movements today without blood. Objective - Vital Signs/Intake and Output Vital Signs (last 24 hours): Temp Pulse Resp BP Pulse Ox 98.1 F 75 20 122/73 97 04/11/17 08:19 04/11/17 15:41 04/11/17 08:19 04/11/17 08:19 04/11/17 08:19 Intake and Output: 04/11/17 04/11/17 06:59 18:59 Intake Total 2089 Balance 2089 - Medications Medications: Current Medications Ciprofloxacin (Cipro 400mg/200ml Dsw) 400 mg in 200 mls @ 133 mls/hr IVPB Q12H [facility] Last Admin: 04/11/17 06:40 Dose: 133 mls/hr Metronidazole (Flagyl) 500 mg in 100 mls @ 100 mls/hr IVPB Q8H [facility] Last Admin: 04/11/17 14:31 Dose: 100 mls/hr Sodium Chloride (Sodium Chloride 0.9%) 1,000 mls @ 100 mls/hr IV .Q10H [facility] Last Admin: 04/11/17 12:55 Dose: 100 mls/hr Pantoprazole Sodium (Protonix Inj) 40 mg IVP Q12H [facility] Last Admin: 04/11/17 06:23 Dose: 40 mg Potassium Chloride (K-Dur 20 Meq Er Tab) 40 meq PO DAILY [facility] Last Admin: 04/11/17 10:56 Dose: 40 meq Rosuvastatin Calcium (Crestor) 20 mg PO HS [facility] Last Admin: 04/10/17 21:48 Dose: 20 mg - Labs Labs: 04/11/17 06:20 04/11/17 06:20 PT 11.5 SECONDS (9.7-12.2) 04/08/17 12:18 INR 1.0 04/08/17 12:18 APTT 31 SECONDS (21-34) 04/08/17 12:18 - Constitutional Appears: No Acute Distress - Head Exam Head Exam: ATRAUMATIC, NORMOCEPHALIC - Eye Exam Eye Exam: EOMI, PERRL - Neck Exam Neck Exam: absent: Lymphadenopathy, Thyromegaly - Respiratory Exam Respiratory Exam: NORMAL BREATHING PATTERN. absent: Rales, Rhonchi, Wheezes - Cardiovascular Exam Cardiovascular Exam: REGULAR RHYTHM, +S1, +S2. absent: Gallop, Rubs, Murmur - GI/Abdominal Exam GI & Abdominal Exam: Soft, Tenderness, Normal Bowel Sounds. absent: Mass, Organomegaly Additional comments: Tenderness to palpation in left mid abdomen is less marked than yesterday - Rectal Exam Rectal Exam: Deferred - Extremities Exam Extremities Exam: absent: Calf Tenderness, Pedal Edema Assessment and Plan (1) Hematochezia Assessment & Plan: The abdominal tenderness is less pronounced compared to yesterday. The WBC count is down to 9,800 (was 14,700 on admission), and the HGB is stable at 12.6 (was 12.1 yesterday). The [address] angiogram again showed thickening of the wall of the descending colon but no vascular abnormalities. The appearance is again consistent with ischemic colitis, infectious colitis or inflammatory bowel disease. The stool culture, O+P and C difficile toxin were negative. We will check the CRP and fecal calprotectin today. I recommend continuing antiobiotics for a total of two weeks. I will schedule colonoscopy as an outpatient. Status: Acute
--- NOTE | 2017-04-12 00:38 | CARD ---
APPROVED REPORT EKG Measurement Heart [id number] <Conclusion> Normal sinus rhythm with sinus arrhythmia Left anterior fascicular block Nonspecific ST abnormality Abnormal ECG
[2017-04-12] MEDS: metroNIDAZOLE IV 500 mg/100 ml 500 MG/100 ML BAG IVPB SCH (05:15)
[2017-04-12] MEDS: Ciprofloxacin 400mg/200ml D5W 400 MG/200 ML BAG IVPB SCH (06:34)
[2017-04-12] MEDS ORDERED: Sodium Chloride 0.9% 1,000 ML IV SCH (07:15)
[2017-04-12 07:46] LABS: BASO % 0.4 % (0.0-2.0); EOS # 0.1 K/uL (0.0-0.7); EOS % 1.2 % (0.0-4.0); HEMATOCRIT 37.9 % (34.0-47.0); LYMPH # 2.7 K/uL (1.0-4.3); LYMPH % 35.9 % (20.0-40.0); MEAN CELL VOLUME 92.3 fL (81.0-99.0); MEAN CORPUSCULAR HEMOGLOBIN 31.6 pg (27.0-31.0); MEAN CORPUSCULAR HGB CONC 34.2 g/dL (33.0-37.0); MEAN PLATELET VOLUME 7.2 fL (7.2-11.7); MONO # 0.5 K/uL (0.0-0.8); MONO % 7.3 % (0.0-10.0); NRBC % 0.1 % (0.0-2.0); RED CELL DISTRIBUTION WIDTH 13.5 % (11.5-14.5); WHITE BLOOD COUNT 7.6 K/uL (4.8-10.8)
[2017-04-12 08:06] LABS: ALKALINE PHOSPHATASE 87 U/L (38-126); ALT/SGPT 34 U/L (9-52); AST/SGOT 33 U/L (14-36); BILIRUBIN,TOTAL 0.7 mg/dL (0.2-1.3); BLOOD UREA NITROGEN 5 mg/dL (7-17); CALCIUM 8.9 mg/dl (8.6-10.4); CARBON DIOXIDE 26 mmol/L (22-30); CHLORIDE 104 mmol/L (98-107); GFR AFRICAN-AMERICAN > 60; GLUCOSE,RANDOM 102 mg/dL (65-105); MAGNESIUM 1.7 mg/dL (1.6-2.3); PHOSPHOROUS 3.3 mg/dL (2.5-4.5); POTASSIUM 3.5 mmol/L (3.6-5.2); SODIUM 140 mmol/L (132-148); TOTAL PROTEIN 6.5 g/dL (6.3-8.3)
[2017-04-12 08:39] VITALS: BP 134/91; PULSE 76; TEMP 98.4; O2SAT 97
[2017-04-12] MEDS: Potassium Chloride 20 mEq ER Tab PO SCH (09:45)
--- NOTE | 2017-04-12 11:09 | CP.PCM.PN ---
Subjective - Date & Time of Evaluation Date of Evaluation: 04/12/17 Time of Evaluation: 10:50 - Subjective Subjective: Hospitalist Progress Note Patient was seen and examined at 10:15 AM 04/12/17 Currently upon FULL ROS: Has not had a bowel movement this morning and is anxious about it Tolerating FULL DIET: didn't feel like eating this morning because of some mild nausea but was able to eat [place] without any issues Some dizziness when she initially gets up out of bed to go to the bathroom ( this is a chronic issue for which she is on Meclizine at home) LUQ pain is still present but only if she or examining physician presses in this area or if she moves a particular way NO other complaint supon FULL ROS Exam: General: AAOx3, NAD HEENT: NCA, EOMI, PERRLA, NO lymphadenopathy, NO thyromegaly, NO pharyngeal erythema/exudate Cardio: NS1 and NS2, NO M/R/G Respiratory: CTA B/L, NO R/R/W GI: BSx4, Soft, NO HSM, NO guarding/rebound tenderness, (+) Tenderness to palpation of the LUQ Ext: Bilateral Pulses UE and LE are strong and equal, Capillary Refill is 2 seconds, NO edema Neuro: CN II through XII are grossly intact Assessments: 1). Lower GI Bleed: IVF, regular full diet, hold off on Colonoscopy for now, considering the possibility of ischemic colitis a CT Angiogram of the Abdomen/ Pelvis was ordered by GI Dr. Hdez and his help is greatly appreciated, HgB/ Hct are stable but consent for PRBC transfusion already obtained by Medicine Team and placed in chart. 2). Abdominal Pain: CT Abdomen/Pelvis shows segmental colitis of descending colon and mid to distal splenic flexture with possible diverticulitis and NO abscess/free air, Cipro and Flagyl, Stool Studies (culture is negative, C.diff toxin is negative, Blood and Leukocytes are positive), Surgery Dr. Marion is also following and no surgical intervention at this time. CT Angiogram of the Abdomen and Pelvis did not show any thrombosis but did redomonstrate evidence of colitis. Continue the Cipro and Flagyl for a total of 14 days through and patient will need outpatient Colonoscopy in about [address] Hdez. Patient will also need to follow up the following stool studies through Dr. Hdez's office: Fecal Calprotectin and CRP. 3). Hypokalemia: essentially resolved, K at 3.5 today 4). Hx HTN: confirmed with [facility] [phone] that patient is on Amlodipine 5 mg PO 1x/day however as blood pressure is currently under control, this is being held during her admission 5). HLD: Crestor 20 mg PO QHS as she is on Atorvastatin 40 mg PO QHS at home 6). Internal Hemorrhoids with Nonspecific Colitis: as per endoscopy 01/25/15 7). Tachycardia: currently there is no tachycardia, Troponin x 3 are negative 8). 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 10). Hx Vertigo: she is on Meclizine 25 mg PO TID PRN at home 11). Prophylaxis: SCDs, Protonix The following instructions were explained to patient and a copy should be provided to her upon discharge: 1). Schedule follow up with [facility] Dr. Saleem Hdez to take place in the next 7 days. His office number is [phone]. You will need to follow up the stool studies followed up and have Colonoscopy performed through Dr. Hdez's office. 2). Please schedule follow up with your Primary Care Physician Dr. Jorge Foy to take place in the next 7 to 10 days. 3). Please have the following prescriptions filled at your pharmacy: Ciprofloxacin 500 mg, 1 tablet by mouth 2x/day (breakfast and dinner) starting on 04/13/17 until finished, Disp #18, NO refills Flagyl 500 mg, 1 tablet by mouth 3x/day (breakfast, lunch, dinner) starting on until finished, Disp #27, NO refills Amlodipine 5 mg, 1 tablet by mouth 1x/day (breakfast), Disp #30, NO refills Lipitor 40 mg, 1 tablet by mouth 1x/day (dinner), Disp #30, NO refills Meclizine 25 mg, 1 tablet by mouth 3x/day ONLY NEEDED for dizziness, Disp #30 , NO refills Nexium 40 mg, 1 tablet by mouth 1x/day (breakfast), Disp #30, NO refills 4). Please take care and be well. Daquan Heller D.O. Objective - Vital Signs/Intake and Output Vital Signs (last 24 hours): Temp Pulse Resp BP Pulse Ox 98.4 F 76 20 134/91 H 97 04/12/17 08:29 04/12/17 08:29 04/12/17 08:29 04/12/17 08:29 04/12/17 08:29 Intake and Output: 04/12/17 04/12/17 06:59 18:59 Intake Total 800 Balance 800 - Medications Medications: Current Medications Docusate Sodium (Colace) 100 mg PO ONCE ONE Stop: 04/12/17 11:16 Ciprofloxacin (Cipro 400mg/200ml Dsw) 400 mg in 200 mls @ 133 mls/hr IVPB Q12H [facility] Last Admin: 04/12/17 06:34 Dose: 133 mls/hr Metronidazole (Flagyl) 500 mg in 100 mls @ 100 mls/hr IVPB Q8H [facility] Last Admin: 04/12/17 05:15 Dose: 100 mls/hr Sodium Chloride (Sodium Chloride 0.9%) 1,000 mls @ 100 mls/hr IV .Q10H [facility] Last Admin: 04/12/17 08:10 Dose: Not Given Pantoprazole Sodium (Protonix Inj) 40 mg IVP Q12H [facility] Last Admin: 04/12/17 06:34 Dose: 40 mg Potassium Chloride (K-Dur 20 Meq Er Tab) 40 meq PO DAILY [facility] Last Admin: 04/12/17 09:45 Dose: 40 meq Rosuvastatin Calcium (Crestor) 20 mg PO HS [facility] Last Admin: 04/11/17 21:26 Dose: 20 mg - Labs Labs: 04/12/17 07:36 04/12/17 07:36 PT 11.5 SECONDS (9.7-12.2) 04/08/17 12:18 INR 1.0 04/08/17 12:18 APTT 31 SECONDS (21-34) 04/08/17 12:18
--- NOTE | 2017-04-12 13:24 | CP.PCM.DIS ---
<Fiona Allen - Last Filed: 04/12/17 13:22> Provider - Provider Date of Admission: 04/08/17 14:01 Attending physician: Imelda Kearney DO Primary care physician: Dr. Choe Consults: Dr. Ketty Marion Time Spent in preparation of Discharge (in minutes): 35 Diagnosis - Discharge Diagnosis (1) Hyperlipidemia Status: Acute Comment: Please see summary for more details. (2) Hypertension Status: Acute Comment: Please see summary for more details. (3) Colitis Status: Acute Comment: Please see summary for more details. (4) Hematochezia Status: Acute Comment: Please see summary for more details. Hospital Course - Lab Results Lab Results: Micro Results 04/08/17 16:00 Blood Blood Culture - Preliminary NO GROWTH AFTER 3 DAYS 04/08/17 16:00 Blood Blood Culture - Preliminary NO GROWTH AFTER 3 DAYS 04/08/17 16:00 Urine Urine Culture - Final <10,000 CFU/ML. MULTIPLE SPECIES. PROBABLE CONTAMINATION. Most Recent Lab Values WBC 7.6 K/uL (4.8-10.8) 04/12/17 07:36 RBC 4.11 Mil/uL (3.80-5.20) 04/12/17 07:36 Hgb 13.0 g/dL (11.0-16.0) 04/12/17 07:36 Hct 37.9 % (34.0-47.0) 04/12/17 07:36 MCV 92.3 fL (81.0-99.0) 04/12/17 07:36 MCH 31.6 pg (27.0-31.0) H 04/12/17 07:36 MCHC 34.2 g/dL (33.0-37.0) 04/12/17 07:36 RDW 13.5 % (11.5-14.5) 04/12/17 07:36 Plt Count 301 K/uL (130-400) 04/12/17 07:36 MPV 7.2 fL (7.2-11.7) 04/12/17 07:36 Neut % (Auto) 55.2 % (50.0-75.0) 04/12/17 07:36 Lymph % (Auto) 35.9 % (20.0-40.0) 04/12/17 07:36 [place] % (Auto) 7.3 % (0.0-10.0) 04/12/17 07:36 Eos % (Auto) 1.2 % (0.0-4.0) 04/12/17 07:36 Baso % (Auto) 0.4 % (0.0-2.0) 04/12/17 07:36 Neut # 4.2 K/uL (1.8-7.0) 04/12/17 07:36 Lymph # 2.7 K/uL (1.0-4.3) 04/12/17 07:36 Sullivan # 0.5 K/uL (0.0-0.8) 04/12/17 07:36 Eos # 0.1 K/uL (0.0-0.7) 04/12/17 07:36 Baso # 0.0 K/uL (0.0-0.2) 04/12/17 07:36 PT 11.5 SECONDS (9.7-12.2) 04/08/17 12:18 INR 1.0 04/08/17 12:18 APTT 31 SECONDS (21-34) 04/08/17 12:18 Sodium 140 mmol/L (132-148) 04/12/17 07:36 Potassium 3.5 mmol/L (3.6-5.2) L 04/12/17 07:36 Chloride 104 mmol/L (98-107) 04/12/17 07:36 Carbon Dioxide 26 mmol/L (22-30) 04/12/17 07:36 Anion Gap 14 (10-20) 04/12/17 07:36 BUN 5 mg/dL (7-17) L 04/12/17 07:36 Creatinine 0.6 MG/DL (0.7-1.2) L 04/12/17 07:36 Est GFR ( Amer) > 60 04/12/17 07:36 Est GFR (Non-Af Amer) > 60 04/12/17 07:36 POC Glucose (mg/dL) 82 mg/dL (65-110) 04/12/17 11:07 Random Glucose 102 mg/dL (65-105) 04/12/17 07:36 Hemoglobin A1c 5.7 % (4.2-6.5) 04/09/17 07:17 Calcium 8.9 mg/dl (8.6-10.4) 04/12/17 07:36 Phosphorus 3.3 mg/dL (2.5-4.5) 04/12/17 07:36 Magnesium 1.7 mg/dL (1.6-2.3) 04/12/17 07:36 Total Bilirubin 0.7 mg/dL (0.2-1.3) 04/12/17 07:36 AST 33 U/L (14-36) 04/12/17 07:36 ALT 34 U/L (9-52) 04/12/17 07:36 Alkaline Phosphatase 87 U/L (38-126) 04/12/17 07:36 Total Creatine Kinase 29 U/L (30-135) L 04/09/17 07:17 CK-MB (Mass) 1.07 ng/mL (0.0-3.38) 04/09/17 07:17 Troponin I, Quant < 0.0120 ng/mL (0.00-0.120) 04/09/17 07:17 C-React Prot High Sens > 15.00 mg/L (1.00-3.00) H 04/11/17 06:20 Total Protein 6.5 g/dL (6.3-8.3) 04/12/17 07:36 Albumin 3.2 g/dL (3.5-5.0) L 04/12/17 07:36 Globulin 3.3 gm/dL (2.2-3.9) 04/12/17 07:36 Albumin/Globulin Ratio 1.0 (1.0-2.1) 04/12/17 07:36 Triglycerides 69 mg/dL (0-149) D 04/09/17 07:17 Cholesterol 191 mg/dL (0-199) 04/09/17 07:17 LDL Cholesterol Direct 134 mg/dL (0-129) H 04/09/17 07:17 HDL Cholesterol 55 mg/dL (30-70) 04/09/17 07:17 Amylase 82 U/L (30-110) 04/08/17 22:38 Lipase 51 U/L (23-300) 04/08/17 14:59 Urine Color Yellow (YELLOW) 04/08/17 12:37 Urine Clarity Clear (Clear) 04/08/17 12:37 Urine pH 8.0 (5.0-8.0) 04/08/17 12:37 Ur Specific [place] 1.005 (1.003-1.030) 04/08/17 12:37 Urine Protein 2+ mg/dL (NEGATIVE) H 04/08/17 12:37 Urine Glucose (UA) 1+ mg/dL (Normal) 04/08/17 12:37 Urine Ketones Negative mg/dL (NEGATIVE) 04/08/17 12:37 Urine Blood 1+ (NEGATIVE) H 04/08/17 12:37 Urine Nitrate Negative (NEGATIVE) 04/08/17 12:37 Urine Bilirubin Negative (NEGATIVE) 04/08/17 12:37 Urine Urobilinogen Normal mg/dL (0.2-1.0) 04/08/17 12:37 Ur Leukocyte Esterase Neg Rufus/uL (Negative) 04/08/17 12:37 Urine WBC (Auto) 3 /hpf (0-5) 04/08/17 12:37 Urine RBC (Auto) 8 /hpf (0-3) H 04/08/17 12:37 Ur Squamous Epith Cells 1 /hpf (0-5) 04/08/17 12:37 Urine Bacteria Rare (<OCC) 04/08/17 12:37 Hyaline Casts 6-10 /lpf (0-2) H 04/08/17 12:37 Stool Occult Blood Positive (NEGATIVE) H 04/08/17 17:24 Stool Leukocytes, Qual Positive (NEGATIVE) H 04/08/17 06:00 C. difficile Ag & Toxin Negative (NEGATIVE) 04/08/17 17:00 Blood Type O POSITIVE 04/08/17 12:18 Antibody Screen Negative 04/08/17 12:18 - Hospital Course Hospital Course: Upon admission: 76 year old female with past medical history of hypertension, hyperlipidemia, and arthritis who presents to the emergency room for abdominal pain. Patient states on Sunday she had some constipation that led her to the bathroom where she saw blood in the toilet. Per patient yesterday she had two bowel movements that were also with blood but the bowel movement were normal in shape and she denied constipation. Patient states today when she had a bowel movement she had a severe abdominal pain and the toilet was covered in blood and that's when she decided to come to the emergency department. Patient states her pain is currently a 6/10. Patient stated she had chills overnight and she vomited once yesterday after eating a piece of bread. Patient states she has not had much of an appetite recently and she has lost 20lbs in the past month or so. Patient states blood in her stool has never happened before. Patient states she did get her colonoscopy about 2 years ago and it was normal but she believes she may need another this year. Patient denies fever, chest pain, shortness of breath, palpitations, trauma, or recent travel. Hospital course: Patient was admitted for abdominal pain and hematochezia. She received an EKG on 04/08/17 which showed normal sinus rhythm with sinus arrhythmia, left anterior fascicular block, and nonspecific ST abnormality. Abdomen/Pelvis CT that day showed segmental colitis affecting the descending colon and [id number] splenic flexure, possible diverticulitis, trace fluid in the pelvis, and urinary bladder not adequately distended with mural thickening not excluded. Stool was positive for occult blood and leukocytes. Patient was started on Ciprofloxacin 400mg IV Q12H and Flagyl 500mg IV Q8H. Surgery (Dr. Marion) was consulted on 04/08/17 and concluded no immediate surgical intent but repeat colonoscopy may be needed. GI (Dr. Perez) was consulted as well and concluded that her symptoms were most consistent with ischemic colitis, to check stools for pathogens, and suggested a colonoscopy as well. CT angiograph done on showed nonspecific colitis involving the descending colon only with no evidence of vascular occlusion or significant stenosis. Patient's home medications were held during hospitalization because her blood pressure was under control but were instructed to be restarted on discharge day. Upon discharge: Patient was seen and evaluated at bedside. Patient is stable for discharge per Dr. Heller. The following instructions were explained to patient and a copy should be provided to her upon discharge: 1). Schedule follow up with Certified [facility] Dr. Saleem Hdez to take place in the next 7 days. His office number is [phone]. You will need to follow up the stool studies followed up and have Colonoscopy performed through Dr. Hdez's office. 2). Please schedule follow up with your Primary Care Physician Dr. Jorge Foy to take place in the next 7 to 10 days. 3). Please have the following prescriptions filled at your pharmacy: Ciprofloxacin 500 mg, 1 tablet by mouth 2x/day (breakfast and dinner) starting on 04/13/17 until finished, Disp #18, NO refills Flagyl 500 mg, 1 tablet by mouth 3x/day (breakfast, lunch, dinner) starting on until finished, Disp #27, NO refills Amlodipine 5 mg, 1 tablet by mouth 1x/day (breakfast), Disp #30, NO refills Lipitor 40 mg, 1 tablet by mouth 1x/day (dinner), Disp #30, NO refills Meclizine 25 mg, 1 tablet by mouth 3x/day ONLY NEEDED for dizziness, Disp #30 , NO refills Nexium 40 mg, 1 tablet by mouth 1x/day (breakfast), Disp #30, NO refills 4). Please take care and be well. Please note that this is a summary of events. For more details, please see complete medical record. - Date & Time of H&P Date of H&P: 04/08/17 Time of H&P: 15:11 Discharge Exam - Head Exam Head Exam: NORMAL INSPECTION - Eye Exam Eye Exam: EOMI - ENT Exam ENT Exam: Mucous Membranes Moist - Respiratory Exam Respiratory Exam: Clear to PA & Lateral, NORMAL BREATHING PATTERN, UNREMARKABLE - Cardiovascular Exam Cardiovascular Exam: REGULAR RHYTHM, +S1, +S2. absent: Bradycardia, Tachycardia - GI/Abdominal Exam GI & Abdominal Exam: Normal Bowel Sounds, Soft, Tenderness (LLQ to deep palpation ). absent: Distended, Guarding - Extremities Exam Extremities exam: normal inspection - Neurological Exam Neurological exam: Alert, Oriented x3 - Psychiatric Exam Psychiatric exam: Normal Affect, Normal Mood - Skin Skin Exam: Dry, Intact, Warm Discharge Plan - Discharge Medications Prescriptions: amLODIPine [Norvasc] 5 mg PO DAILY #30 tab Atorvastatin [Lipitor] 40 mg PO DAILY #30 Ciprofloxacin [Cipro] 500 mg PO BID #18 tab Esomeprazole Magnesium [Nexium] 40 mg PO DAILY #30 cap Meclizine [Meclizine*] 25 mg PO TID #30 tab Metronidazole [Flagyl] 500 mg PO TID #27 tablet - Follow Up Plan Condition: GOOD Disposition: HOME/ ROUTINE Instructions: Gastrointestinal Bleeding (DC), Gastrointestinal Bleeding (GEN), Acute Abdominal Pain (DC), Acute Abdominal Pain (GEN), Infectious Colitis (GEN) Additional Instructions: The following instructions were explained to patient and a copy should be provided to her upon discharge: 1). Schedule follow up with Certified [facility] Dr. Saleem Hdez to take place in the next 7 days. His office number is [phone]. You will need to follow up the stool studies followed up and have Colonoscopy performed through Dr. Hdez's office. 2). Please schedule follow up with your Primary Care Physician Dr. Jorge Foy to take place in the next 7 to 10 days. 3). Please have the following prescriptions filled at your pharmacy: Ciprofloxacin 500 mg, 1 tablet by mouth 2x/day (breakfast and dinner) starting on 04/13/17 until finished, Disp #18, NO refills Flagyl 500 mg, 1 tablet by mouth 3x/day (breakfast, lunch, dinner) starting on until finished, Disp #27, NO refills Amlodipine 5 mg, 1 tablet by mouth 1x/day (breakfast), Disp #30, NO refills Lipitor 40 mg, 1 tablet by mouth 1x/day (dinner), Disp #30, NO refills Meclizine 25 mg, 1 tablet by mouth 3x/day ONLY NEEDED for dizziness, Disp #30 , NO refills Nexium 40 mg, 1 tablet by mouth 1x/day (breakfast), Disp #30, NO refills 4). Please take care and be well. Referrals: Aleta Foy MD [Staff Provider] - Saleem Hdez MD [Staff Provider] - <Daquan Heller - Last Filed: 04/12/17 16:59> Provider - Provider Date of Admission: 04/08/17 14:01 Attending physician: Imelda Kearney, Hospital Course - Lab Results Lab Results: Micro Results 04/08/17 16:00 Blood Blood Culture - Preliminary NO GROWTH AFTER 4 DAYS 04/08/17 16:00 Blood Blood Culture - Preliminary NO GROWTH AFTER 4 DAYS 04/08/17 16:00 Urine Urine Culture - Final <10,000 CFU/ML. MULTIPLE SPECIES. PROBABLE CONTAMINATION. Most Recent Lab Values WBC 7.6 K/uL (4.8-10.8) 04/12/17 07:36 RBC 4.11 Mil/uL (3.80-5.20) 04/12/17 07:36 Hgb 13.0 g/dL (11.0-16.0) 04/12/17 07:36 Hct 37.9 % (34.0-47.0) 04/12/17 07:36 MCV 92.3 fL (81.0-99.0) 04/12/17 07:36 MCH 31.6 pg (27.0-31.0) H 04/12/17 07:36 MCHC 34.2 g/dL (33.0-37.0) 04/12/17 07:36 RDW 13.5 % (11.5-14.5) 04/12/17 07:36 Plt Count 301 K/uL (130-400) 04/12/17 07:36 MPV 7.2 fL (7.2-11.7) 04/12/17 07:36 Neut % (Auto) 55.2 % (50.0-75.0) 04/12/17 07:36 Lymph % (Auto) 35.9 % (20.0-40.0) 04/12/17 07:36 Sullivan % (Auto) 7.3 % (0.0-10.0) 04/12/17 07:36 Eos % (Auto) 1.2 % (0.0-4.0) 04/12/17 07:36 Baso % (Auto) 0.4 % (0.0-2.0) 04/12/17 07:36 Neut # 4.2 K/uL (1.8-7.0) 04/12/17 07:36 Lymph # 2.7 K/uL (1.0-4.3) 04/12/17 07:36 Sullivan # 0.5 K/uL (0.0-0.8) 04/12/17 07:36 Eos # 0.1 K/uL (0.0-0.7) 04/12/17 07:36 Baso # 0.0 K/uL (0.0-0.2) 04/12/17 07:36 PT 11.5 SECONDS (9.7-12.2) 04/08/17 12:18 INR 1.0 04/08/17 12:18 APTT 31 SECONDS (21-34) 04/08/17 12:18 Sodium 140 mmol/L (132-148) 04/12/17 07:36 Potassium 3.5 mmol/L (3.6-5.2) L 04/12/17 07:36 Chloride 104 mmol/L (98-107) 04/12/17 07:36 Carbon Dioxide 26 mmol/L (22-30) 04/12/17 07:36 Anion Gap 14 (10-20) 04/12/17 07:36 BUN 5 mg/dL (7-17) L 04/12/17 07:36 Creatinine 0.6 MG/DL (0.7-1.2) L 04/12/17 07:36 Est GFR ( Amer) > 60 04/12/17 07:36 Est GFR (Non-Af Amer) > 60 04/12/17 07:36 POC Glucose (mg/dL) 82 mg/dL (65-110) 04/12/17 11:07 Random Glucose 102 mg/dL (65-105) 04/12/17 07:36 Hemoglobin A1c 5.7 % (4.2-6.5) 04/09/17 07:17 Calcium 8.9 mg/dl (8.6-10.4) 04/12/17 07:36 Phosphorus 3.3 mg/dL (2.5-4.5) 04/12/17 07:36 Magnesium 1.7 mg/dL (1.6-2.3) 04/12/17 07:36 Total Bilirubin 0.7 mg/dL (0.2-1.3) 04/12/17 07:36 AST 33 U/L (14-36) 04/12/17 07:36 ALT 34 U/L (9-52) 04/12/17 07:36 Alkaline Phosphatase 87 U/L (38-126) 04/12/17 07:36 Total Creatine Kinase 29 U/L (30-135) L 04/09/17 07:17 CK-MB (Mass) 1.07 ng/mL (0.0-3.38) 04/09/17 07:17 Troponin I, Quant < 0.0120 ng/mL (0.00-0.120) 04/09/17 07:17 C-React Prot High Sens > 15.00 mg/L (1.00-3.00) H 04/11/17 06:20 Total Protein 6.5 g/dL (6.3-8.3) 04/12/17 07:36 Albumin 3.2 g/dL (3.5-5.0) L 04/12/17 07:36 Globulin 3.3 gm/dL (2.2-3.9) 04/12/17 07:36 Albumin/Globulin Ratio 1.0 (1.0-2.1) 04/12/17 07:36 Triglycerides 69 mg/dL (0-149) D 04/09/17 07:17 Cholesterol 191 mg/dL (0-199) 04/09/17 07:17 LDL Cholesterol Direct 134 mg/dL (0-129) H 04/09/17 07:17 HDL Cholesterol 55 mg/dL (30-70) 04/09/17 07:17 Amylase 82 U/L (30-110) 04/08/17 22:38 Lipase 51 U/L (23-300) 04/08/17 14:59 Urine Color Yellow (YELLOW) 04/08/17 12:37 Urine Clarity Clear (Clear) 04/08/17 12:37 Urine pH 8.0 (5.0-8.0) 04/08/17 12:37 Ur Specific [place] 1.005 (1.003-1.030) 04/08/17 12:37 Urine Protein 2+ mg/dL (NEGATIVE) H 04/08/17 12:37 Urine Glucose (UA) 1+ mg/dL (Normal) 04/08/17 12:37 Urine Ketones Negative mg/dL (NEGATIVE) 04/08/17 12:37 Urine Blood 1+ (NEGATIVE) H 04/08/17 12:37 Urine Nitrate Negative (NEGATIVE) 04/08/17 12:37 Urine Bilirubin Negative (NEGATIVE) 04/08/17 12:37 Urine Urobilinogen Normal mg/dL (0.2-1.0) 04/08/17 12:37 Ur Leukocyte Esterase Neg Rufus/uL (Negative) 04/08/17 12:37 Urine WBC (Auto) 3 /hpf (0-5) 04/08/17 12:37 Urine RBC (Auto) 8 /hpf (0-3) H 04/08/17 12:37 Ur Squamous Epith Cells 1 /hpf (0-5) 04/08/17 12:37 Urine Bacteria Rare (<OCC) 04/08/17 12:37 Hyaline Casts 6-10 /lpf (0-2) H 04/08/17 12:37 Stool Occult Blood Positive (NEGATIVE) H 04/08/17 17:24 Stool Leukocytes, Qual Positive (NEGATIVE) H 04/08/17 06:00 C. difficile Ag & Toxin Negative (NEGATIVE) 04/08/17 17:00 Blood Type O POSITIVE 04/08/17 12:18 Antibody Screen Negative 04/08/17 12:18 Attending/Attestation - Attestation I have personally seen and examined this patient.: Yes I have fully participated in the care of the patient.: Yes I have reviewed all pertinent clinical information, including history, physical exam and plan: Yes
== END 2017-04-12 15:29 | disposition home or self-care (01) | DRG 394 ==
LOC: C.ER 11:24 → C.9OBSV 11:45 → OBSVTOIN 14:01 → C.9E 14:13 → C.6T 14:24
PROVIDERS: ADMIT Hospitalist; ATTEND Hospitalist
DX: K55.9 Vascular disorder of intestine, unspecified (principal); K57.92 Diverticulitis of intestine, part unspecified, without perforation or abscess without bleeding; I10 Essential (primary) hypertension; E87.6 Hypokalemia; E78.00 Pure hypercholesterolemia, unspecified; K59.00 Constipation, unspecified; K64.8 Other hemorrhoids; M81.0 Age-related osteoporosis without current pathological fracture; Z80.1 Family history of malignant neoplasm of trachea, bronchus and lung; Z86.010 Personal history of colon polyps

== ENCOUNTER 2018-02-02 16:15 | Emergency (ER) | payer MEDICARE, OTHER ==
[2018-02-02 16:15] VITALS: BMI 25.4
[2018-02-02 16:30] VITALS: RESP 20
[2018-02-02] MEDS ORDERED: Bacitracin 500 Units/gm Oint Foilpak UD TOP ONE (17:22)
[2018-02-02] MEDS ORDERED: Tdap Vaccine 0.5 ml Vial (10-64 yrs) IM ONE ×2 (17:23→17:31)
[2018-02-02] MEDS ORDERED: Bacitracin 500 Units/gm Oint Foilpak UD ONE (17:31)
--- NOTE | 2018-02-02 18:08 | C.PDOC ---
History Of Present Illness 77 y/o female comes to ed s/p trip and fall in street about an hour prior; pt was pushing wagon on her way to go shopping and tripped, fell forward and landed on right side face and right knee, denies loc, denies neck pain. pt denies cp, sob, dizziness prior to fall. pt was helped up by bystanders, walked home and realized thumb swollen and came back to ed for evaluation. pt c/o pain to right face, right thumb, lip and knee. last tdap unk. Time Seen by Provider: 02/02/18 16:48 Chief Complaint (Nursing): Medical Clearance History Per: Patient History/Exam Limitations: no limitations Onset/Duration Of Symptoms: Hrs (2) Current Symptoms Are (Timing): Still Present Severity: Moderate Past Medical History Reviewed: Historical Data, Nursing Documentation, Vital Signs Vital Signs: Last Vital Signs Temp 98.6 F 02/02/18 20:02 Pulse 69 02/02/18 20:02 Resp 20 02/02/18 20:02 BP 100/70 02/02/18 20:02 Pulse Ox 100 02/03/18 22:47 - Medical History PMH: Back Problems (Herniated Discs), Colonic Polyps, HTN, Hypercholesterolemia , Osteoporosis, Peripheral Edema Denies: Chronic Kidney Disease - [facility] CLOSED ENDOSCOPIC BIOPSY OF LARGE INTESTINE (01/25/15) LOCAL EXCIS BREAST LES (05/03/01) Family History: States: Unknown Family Hx - Social History Hx Tobacco Use: No Hx Alcohol Use: No Hx Substance Use: No - Immunization History Hx Tetanus Toxoid Vaccination: Yes Hx Influenza Vaccination: No Hx Pneumococcal Vaccination: No Review Of Systems Constitutional: Negative for: Fever, Chills Eyes: Negative for: Pain, Vision Change ENT: Negative for: Ear Pain, Nose Discharge Cardiovascular: Negative for: Chest Pain Respiratory: Negative for: Shortness of Breath Skin: Positive for: Bruising (right thumb), Other (abrasions) Neurological: Negative for: Weakness, Numbness, Dizziness Physical Exam - Physical Exam Appears: Non-toxic, No Acute Distress Skin: Warm, Dry Head: Normacephalic, Swelling (right side face, tender zygomatic arch), Abrasion (right upper lip, teeth stable. no loose teeth. no laceration noted. ) Eye(s): bilateral: Normal Inspection, PERRL, EOMI, right: Other (swelling and ecchymosis proximal right eyebrow) Ear(s): Bilateral: Normal (no hemotympanum) Nose: No Discharge Oral Mucosa: Moist Neck: No Midline Cervical Tenderness, No Paracervical Tenderness, No Step Off Deformity, Supple Chest: No Deformity, No Tenderness Cardiovascular: Rhythm Regular, No Murmur Respiratory: No Decreased Breath Sounds, No Wheezing Gastrointestinal/Abdominal: Soft, No Tenderness Back: Normal Inspection, No Vertebral Tenderness Extremity: Tenderness (right thumb,. mild tenderness right knee with from, and small abrasion), Swelling ( right thumb markedly swollen, ecchymotic, tender at distal phalanx. not tender to rest of right finger, wrist or elbow, all with from. ) Extremity: Right: Bony Point Tenderness (thumb) Pulses: Left Radial: Normal, Right Radial: Normal Neurological/Psych: Oriented x3, Normal Speech, Normal Cognition, Normal Cranial Nerves, Normal Motor, Normal Sensation Gait: Steady ED Course And Treatment O2 Sat by Pulse Oximetry: 100 - CT Scan/US HEAD CT Other Rad Studies (CT/US): Read By Radiologist, Radiology Report Reviewed CT/US Interpretation: IMPRESSION: No acute intracranial abnormality ORBITS CT Other Rad Studies (CT/US): Read By Radiologist, Radiology Report Reviewed CT/US Interpretation: FINDINGS: Bones/joints: There are no acute facial bone fracture. Bony orbits are intact bilaterally. Zygomatic. arches are intact. There are mild degenerative changes in the cervical spine. Soft tissues: There are no soft tissue masses. Lymph nodes: There is shotty adenopathy. Orbits: Orbital contents are unremarkable. Salivary glands: Parotid and submandibular glands are unremarkableSinuses: There is no acute sinusitis. Auditory system: Middle ears and mastoids are unremarkable. There is debris in the right external. auditory canal. Dental: Streak artifact from dental fillings degrades image quality. Brain: No focal abnormalities are seen in visualized portion of the brain. Airway: Airway is unremarkable. IMPRESSION: No facial bone fractures; intact globes Reassessment Condition: Improved Orthopedic Time Out: Side verified, Site verified Procedure: Splint Type: Thumb spica Location: Right, Finger (thumb) Consent obtained: Verbal Performed by: Mid-level Provider (done by cp, checked byme) Diagnosis: Fracture Type: Closed Location: Right, Distal Bone: Phalanx, Thumb Joints: DIP Joint Capillary refill: Normal Distal Sensation: Normal Distal Motor Function: Normal Capillary Refill: Normal Compartment: Normal Distal Sensation: Normal Distal Motor Function: Normal Medical Decision Making Medical Decision Makin77 y/o female s/p fall, head and orbit ct neg, right thumb with fx, thumb spica splint placed, tdap booster given, splint instructions given. Disposition Counseled Patient/Family Regarding: Studies Performed, Diagnosis, Need For Followup, Rx Given - Disposition Referrals: Deangelo Ramsey MD [Medical Doctor] - Disposition: HOME/ ROUTINE Disposition Time: 19:49 Condition: IMPROVED Additional Instructions: Keep right arm elevated in splint, apply cold compresses to thumb over splint several times a day. Tylenol for pain. Bacitracin to abrasion 2 times a day. Follow up with hand specialist (Dr Ramsey) next week- call on Sunday for an appointment. For any severe headache, vomiting, seizure, or unusual activity. , return to er. Follow up with your medical doctor or in clinic on sunday. Prescriptions: Acetaminophen [Tylenol 325mg tab] 650 mg PO Q6 #30 tab Bacitracin OINT 1 applic TOP BID #1 tube Instructions: Finger Fracture (DC) Forms: [facility] ([place]), General Discharge Instructions - Clinical Impression Clinical Impression: Fall from other slipping, tripping, or stumbling, Fracture of thumb, right, closed, Abrasions of multiple sites
--- NOTE | 2018-02-02 18:53 | CT ---
EXAM: CT Head Without Intravenous Contrast EXAM DATE/TIME: 02/02/2018 5:20 PM CLINICAL HISTORY: 77 years old, female; Injury or trauma; Fall; Initial encounter; Blunt trauma (contusions or hematomas); Without loss of consciousness; Additional info: Fall onto right side face, no loc TECHNIQUE: Axial computed tomography images of the head/brain without intravenous contrast. All CT scans at this facility use at least one of these dose optimization techniques: automated exposure control; mA and/or kV adjustment per patient size (includes targeted exams where dose is matched to clinical indication); or iterative reconstruction. Coronal and sagittal reformatted images were created and reviewed. COMPARISON: There are no prior studies for comparison. FINDINGS: Brain: There is prominence of the sulci gyri and ventricles. There is no midline shift. There is decreased attenuation in periventricular white matter. There are no focal masses. There are no focal hemorrhages. Bird-white differentiation is visualized. Ventricles: See above. Bones: Cranial vault is intact. Soft tissues: unremarkable Sinuses: There is no acute sinusitis. Ears and mastoids: Middle ears and mastoids are unremarkable. Orbits: Orbital contents are unremarkable. IMPRESSION: No acute intracranial abnormality
--- NOTE | 2018-02-02 18:59 | CT ---
EXAM: CT Maxillofacial Without Intravenous Contrast EXAM DATE/TIME: 02/02/2018 5:21 PM CLINICAL HISTORY: 77 years old, female; Injury or trauma; Fall; Initial encounter; Abrasion; Cheek bone and ocular (eye or eyeball) and lip/oral cavity; Right; Upper; Additional info: S/P fall, pain right prox orbit and zygomatic arc TECHNIQUE: Axial computed tomography images of the face without intravenous contrast. All CT scans at this facility use at least one of these dose optimization techniques: automated exposure control; mA and/or kV adjustment per patient size (includes targeted exams where dose is matched to clinical indication); or iterative reconstruction. Coronal and sagittal reformatted images were created and reviewed. COMPARISON: CT - HEAD W/O CONTRAST 2018-02-02 18:02 FINDINGS: Bones/joints: There are no acute facial bone fracture. Bony orbits are intact bilaterally. Zygomatic arches are intact. There are mild degenerative changes in the cervical spine. Soft tissues: There are no soft tissue masses. Lymph nodes: There is shotty adenopathy. Orbits: Orbital contents are unremarkable. Salivary glands: Parotid and submandibular glands are unremarkable. Sinuses: There is no acute sinusitis. Auditory system: Middle ears and mastoids are unremarkable. There is debris in the right external auditory canal. Dental: Streak artifact from dental fillings degrades image quality. Brain: No focal abnormalities are seen in visualized portion of the brain. Airway: Airway is unremarkable. IMPRESSION: No facial bone fractures; intact globes
[2018-02-02 20:03] VITALS: BP 100/70; PULSE 69; TEMP 98.6
--- NOTE | 2018-02-03 10:12 | RAD ---
PROCEDURE: Right Hand Radiographs. HISTORY: s/p fall, rey and swelling to right thumb COMPARISON: None. FINDINGS: BONES: There is a minimally displaced fracture traversing the base distal phalanx right thumb. Questionable old healed fracture deformity 5th metacarpal. . No evidence of acute displaced fracture nor dislocation. Mild diffuse demineralization. JOINTS: Mild multi articular degenerative osteoarthritis including osteoarthritis of the greater multangular 1st metacarpal and triscaphe degenerative osteoarthritis. Degenerative osteoarthritis also noted between the scapholunate articulation SOFT TISSUES: Normal. OTHER FINDINGS: None. IMPRESSION: There is a minimally displaced fracture traversing the base distal phalanx right thumb. Questionable old healed fracture deformity 5th metacarpal. Multi articular degenerative osteoarthritis.
[2018-02-03 22:39] VITALS: O2SAT 100
== END 2018-02-02 20:03 | disposition home or self-care (01) ==
LOC: C.ER 16:15
DX: S62.521A Displaced fracture of distal phalanx of right thumb, initial encounter for closed fracture (principal); W01.0XXA Fall on same level from slipping, tripping and stumbling without subsequent striking against object, initial encounter; E78.00 Pure hypercholesterolemia, unspecified; I10 Essential (primary) hypertension; Z23 Encounter for immunization